=== PATIENT | male | born 1955 | race Caucasian/White ===

== ENCOUNTER 2020-08-03 22:20 | Emergency (ER) | payer OTHER ==
--- OUTSIDE RECORDS SUMMARY | 2020-08-03 22:23 | XMS REPORT | Clinical Summary ---
:1955 Author Organization [facility] Address [address] [place] [address] Care Team Providers Name Role Phone Asked, No Pcp Primary Care Provider Unavailable Allergies Active Allergy Reactions Severity Noted Date Comments Fish Containing Products Swelling High 09/03/2019 thr oat Medications Medication Sig Dispensed Refills Start Date End Date Status metFORMIN 2 (two) times 0 07/02/2019 Activ e (GLUCOPHAGE) 500 a day. mg tablet nitroglycerin as needed. 0 05/29/2019 Acti ve (NITROSTAT) 0.4 MG SL tablet aspirin (ECOTRIN) Take 81 mg by 0 Active 81 MG enteric mouth daily. coated tablet clopidogrel Take 1 tablet 90 tablet 3 09/03/2019 Act deshaun (PLAVIX) 75 mg (75 mg total) 0 tablet by mouth daily. atorvastatin Take 1 tablet 90 tablet 0 10/08/2019 Ac tive (LIPITOR) 40 MG (40 mg total) tablet by mouth daily. metoprolol Take 1 tablet 180 tablet 0 10/08/2019 Act deshaun succinate XL (50 mg total) (TOPROL-XL) 50 mg by mouth 2 24 hr tablet (two) times a day. sildenafiL Take 1 tablet 90 tablet 3 04/09/2020 Acti ve (VIAGRA) 100 MG (100 mg tablet total) by mouth daily as needed for erectile dysfunction. sildenafiL Take 1 tablet 90 tablet 0 04/07/2020 Acti ve (VIAGRA) 100 MG (100 mg tablet total) by mouth as needed for erectile dysfunction. atorvastatin 0 08/16/2019 Discon tinued (LIPITOR) 40 MG 9 (Reo rder) tablet metoprolol 2 (two) times 0 07/06/2019 Disc ontinued succinate XL a day. 9 (Reorde r) (TOPROL-XL) 50 mg 24 hr tablet metoprolol Take 1 tablet 180 tablet 0 09/30/2019 Dis continued succinate XL (50 mg total) 9 (Re order) (TOPROL-XL) 50 mg by mouth 2 24 hr tablet (two) times a day. atorvastatin Take 1 tablet 90 tablet 0 09/30/2019 Di scontinued (LIPITOR) 40 MG (40 mg total) 9 (Reorder) tablet by mouth daily. atorvastatin Take 1 tablet 90 tablet 0 10/03/2019 Di scontinued (LIPITOR) 40 MG (40 mg total) 9 (Reorder) tablet by mouth daily. sildenafiL Take 1 tablet 30 tablet 0 02/18/2020 Disc ontinued (Viagra) 50 MG (50 mg total) 0 ( Reorder) tablet by mouth as needed for erectile dysfunction. Active Problems Problem Noted Date Hypertension 09/03/2019 Coronary artery disease involving citizen potawatomi coronary lizett ry of citizen pot[place]atomi heart 09/03/2019 without angina pectoris Apnea 09/03/2019 Vision, loss, sudden, left 09/03/2019 Hx of CABG 09/03/2019 Encounters Date Type Specialty Care Team Description 04/27/2020 Refill Cardiology Bea Smith MA Med Ref ill 04/07/2020 Telephone Cardiology Alexey Bliss MA Medication Que stion (Sildenafil) 04/07/2020 Orders Only Cardiology Alexey Bliss MA 04/06/2020 Refill Cardiology Marquita Ba MD Med Refi ll 02/19/2020 Travel 02/18/2020 Telemedicine Cardiology Marquita Ba MD Coronary artery disease involving citizen potawatomi coronary artery of citizen pot[place]atomi heart without angina pectoris (Primary Dx); Hypertension, u nspecified type; Hx of CABG 02/18/2020 Telephone Cardiology Alexey Bliss MA Appointment (v irtual) 02/17/2020 Travel 02/11/2020 Travel 10/08/2019 Orders Only Cardiology Alexey Bliss MA 10/02/2019 Refill Cardiology Marquita Ba MD Med Refi ll 09/30/2019 Orders Only Cardiology Alexey Bliss MA 09/03/2019 Lab Lab Marquita Ba MD [facility] care with new doctor, encounter for; Hypertension, u nspecified type; Coronary artery disease involving citizen pot[place]atomi coronary artery of citizen pot[place]atomi heart without angina pectoris 09/03/2019 Office Visit Cardiology Marquita Ba MD Hyperten roselyn, unspecified type (Primary Dx); Establishing ca re with new doctor, encounter for; Coronary artery disease involving citizen potawatomi coronary artery of citizen potawatomi heart without angina pectoris; Apnea; Vision, loss, s udden, left; H/O four vessel coronary artery bypass graft after 08/03/2019 Surgical History Surgery Date Site/Laterality Comments CORONARY ARTERY BYPASS GRAFT KNEE SURGERY Left Medical History Medical History Date Comments Hypertension Hyperlipidemia Type 2 diabetes mellitus (HCC) Family History Medical History Relation Name Comments No Known Problems Father Heart failure Mother Relation Name Status Comments Father Mother Social History Tobacco Use Types Packs/Day Years Used Date Never Smoker Smokeless Tobacco: Never Used Alcohol Use Drinks/Week oz/Week Comments Never Alcohol Habits Answer Date Recorded How often do you have a drink containing alcohol? Never 09/03/2019 How many drinks containing alcohol do you have on a typical Not asked day when you are drinking? How often do you have six or more drinks on one occasion? No t asked Sex Assigned at Date Recorded Male 02/17/2020 1:42 PM CDT Last Filed Vital Signs Vital Sign Reading Time Taken Comments Blood Pressure 152/86 09/03/2019 8:20 AM [employer] Pulse 62 09/03/2019 8:20 AM [employer] Temperature - - Respiratory Rate - - Oxygen Saturation 100% 09/03/2019 8:20 AM [employer] Inhaled Oxygen Concentration - - Weight 116 kg (256 lb) 09/03/2019 8:20 AM [employer] Height 177.8 cm (5' 10") 09/03/2019 8:20 AM [employer] Body Mass Index 36.73 09/03/2019 8:20 AM [employer] Plan of Treatment Date Type Specialty Care Team Description 08/25/2020 Office Visit Cardiology Marquita Ba MD [address] [facility] [address] [place], [place] [address] [phone] Health Maintenance Due Date Last Done Comments DIABETES: RETINAL EYE EXAM 1955 DIABETIC FOOT EXAM 1966 URINE MICROALBUMIN 1966 COLONOSCOPY SCREENING 2006 SHINGLES VACCINES (#1) 2006 INFLUENZA VACCINE 05/16/2020 06/24/2019 Procedures Procedure Name Priority Date/Time Associated Diagnosis Comme nts US CAROTID DUPLEX Routine 09/03/2019 2:45 Establishing care R esults for this BILATERAL PM [employer] with new doctor, procedure a re in encounter for the results Hypertension, section. unspecified type Coronary artery disease involving citizen pot[place]atomi coronary artery of citizen potawatomi heart without angina pectoris COPY RECEIVED FROM: Routine 09/03/2019 9:19 Resu lts for this AM [employer] procedure are i n the results section. NON HDL CHOLESTEROL Routine 09/03/2019 9:19 Resu lts for this (REFLEX [facility]) AM [employer] procedure are in the results section. CHOL/HDLC RATIO Routine 09/03/2019 9:19 Results for this ([facility]LEX [facility]) AM [employer] procedure are in the results section. LDL-CHOLESTEROL Routine 09/03/2019 9:19 Results for this (REFLEX [facility]) AM [employer] procedure are in the results section. TRIGLYCERIDES Routine 09/03/2019 9:19 Results fo r this AM [employer] procedure are i n the results section. HDL CHOLESTEROL Routine 09/03/2019 9:19 Results for this AM [employer] procedure are i n the results section. CHOLESTEROL Routine 09/03/2019 9:19 Results for this AM [employer] procedure are i n the results section. COPY(IES) SENT TO: Routine 09/03/2019 9:19 Resul ts for this AM [employer] procedure are i n the results section. AST (SGOT) Routine 09/03/2019 9:19 Establishing care Result s for this AM [employer] with new doctor, procedure a re in encounter for the results Hypertension, section. unspecified type LIPID PANEL Routine 09/03/2019 9:19 Establishing care Result s for this AM [employer] with new doctor, procedure a re in encounter for the results Hypertension, section. unspecified type Coronary artery disease involving citizen pot[place]i coronary artery of citizen potawatomi heart without angina pectoris ECG 12-LEAD Routine 09/03/2019 8:19 Establishing care Result s for this AM [employer] with new doctor, procedure a re in encounter for the results Hypertension, section. unspecified type after 08/03/2019 Results Us carotid duplex (09/03/2019 2:45 PM [employer]) Specimen Narrative Performed At [facility] Carotid Lizett ry Ultrasound Report Pat.Name: ETHAN HUDSNO Pat.ID: [id number] St.Date: 09/03/2019 Refer.MD: MARQUITA BA MD Exam Time: 3:25:00 PM Study Type:Amarjit AVALOS Age: 10 1955,64Y Sex: MALE Sonogrphr: Lizett Easton RVT Pat. Stat.:Outp atient Room: [facility] ol: ADEEL, [facility] - 4: [address] [place] nt ID:[id number] Order ID: [id number] Reason for Study:Carotid disease screeni ng, Hx of HTN, CAD SUMMARY: CAROTID ARTERY SCAN RIGHT: There is smooth intimal lining in the common, internal and external carotid arteries with normal co lorflow. LEFT: There is smooth intimal li marcel in the common carotid artery. There is hard plaque noted in th e bulb extending into the proximal internal carotid artery. [place] rflow is undisturbed. There is antegrade flow in the vertebral artery. PRELIMINARY FINDINGS 1. Normal carotid duplex examination, right. 2. <50% stenosis in the left bulb/events intern al carotid artery. PHYSICIAN INTERPRETATION Bilateral carotid duplex examination dem onstrated atherosclerotic plaques in the left bulb. Normal carotid duplex examination, right . Less than 50% stenosis in the bulb and i nternal carotid artery, left. Both vertebral arteries are antegrade. FINDINGS: Carotid Findings: Right Left Verteb.Flw Antegrade Antegrade Subclavian Triphasic Triphasic MEASUREMENTS: DOPPLER Right CCA Dist CCA Dist PSV 65 cm/s CCA Dist EDV 9.28 cm/s Right CCA Mid CCA Mid PSV 74.3 cm/s CCA Mid EDV 10.8 cm/s Right CCA Prox CCA Prox PSV 108 cm/s CCA Prox EDV 9.94 cm/s Right Bulb Bulb PSV 55.7 cm/s Bulb EDV 7.74 cm/s Right ECA ECA PSV 107 cm/s ECA EDV 10.8 cm/s Right ICA Dist ICA Dist PSV 72.2 cm/s ICA Dist EDV 28.4 cm/s Right ICA Mid ICA Mid PSV 68.9 cm/s ICA Mid EDV 26.2 cm/s Right ICA Prox ICA Prox PSV 51.4 cm/s ICA Prox EDV 13.1 cm/s Right Vertebral Vertebral PSV 39.7 cm/s Vertebral EDV 12.5 cm/s Left CCA Dist CCA Dist PSV 68.1 cm/s CCA Dist EDV 12.4 cm/s Left CCA Prox CCA Prox PSV 141 cm/s CCA Prox EDV 12.1 cm/s Left Bulb Bulb PSV 65 cm/s Bulb EDV 12.4 cm/s Left ECA ECA PSV 107 cm/s ECA EDV 12.4 cm/s Left ICA Dist ICA Dist PSV 70.1 cm/s ICA Dist EDV 20.2 cm/s Left ICA Mid ICA Mid PSV 84.6 cm/s ICA Mid EDV 12.1 cm/s Left ICA Prox ICA Prox PSV 44.8 cm/s ICA Prox EDV 10.9 cm/s Left Vertebral Vertebral PSV 37.9 cm/s Vertebral EDV 9.76 cm/s Left CCA Mid CCA Mid PSV 85 cm/s CCA Mid EDV 12 cm/s Right ECA Prox ECA Prox PSV 107 cm/s ECA Prox EDV 11 cm/s Left ECA Prox ECA Prox PSV 107 cm/s ECA Prox EDV 12 cm/s Right SCA Prox SCA Prox PSV 102 cm/s Left SCA Prox SCA Prox PSV 149 cm/s Right ICA/CCA Ratio ICA/CCA PSV 0.692 Left ICA/CCA Ratio ICA/CCA PSV 0.527 Signed 09/04/2019 07:25 AM Marquita Ba MD Procedure Note Interface, Radiology Results In - 2018 7:26 AM [employer] [facility] Carotid Artery Ultras ound Report Pat.Name: ETHAN HUDSON Pat.I D: [id number] .Date: 09/03/2019 Refer .MD: MARQUITA BA MD Exam Time: 3:25:00 PM Study Type:Carotid Age: 10 1955,64Y Sex: MALE Sonogrphr: Lizett Easton RVT Pat. Stat.:Outpatient Room: [facility] Vol: SD, CPT - 4: 82365 Echo Event ID:[id number] Order ID: [id number] Reason for Study:Carotid disease screeni ng, Hx of HTN, CAD SUMMARY: CAROTID ARTERY SCAN RIGHT: There is smooth intimal lining i n the common, internal and external carotid arteries with normal co lorflow. LEFT: There is smooth intimal linin g in the common carotid artery. There is hard plaque noted in th e bulb extending into the proximal internal carotid artery. Color flow is undisturbed. There is antegrade flow in the vertebral artery. PRELIMINARY FINDINGS 1. Normal carotid duplex examination, r ight. 2. <50% stenosis in the left bulb/events intern al carotid artery. PHYSICIAN INTERPRETATION Bilateral carotid duplex examination dem onstrated atherosclerotic plaques in the left bulb. Normal carotid duplex examination, right . Less than 50% stenosis in the bulb and i nternal carotid artery, left. Both vertebral arteries are antegrade. FINDINGS: Carotid Findings: Right Left Verteb.Flw Antegrade Antegrade Subclavian Triphasic Triphasic MEASUREMENTS: DOPPLER Right CCA Dist CCA Dist PSV 65 cm/s CCA Dist EDV 9.28 cm/s Right CCA Mid CCA Mid PSV 74.3 cm/s CCA Mid EDV 10.8 cm/s Right CCA Prox CCA Prox PSV 108 cm/s CCA Prox EDV 9.94 cm/s Right Bulb Bulb PSV 55.7 cm/s Bulb EDV 7.74 cm/s Right ECA ECA PSV 107 cm/s ECA EDV 10.8 cm/s Right ICA Dist ICA Dist PSV 72.2 cm/s ICA Dist EDV 28.4 cm/s Right ICA Mid ICA Mid PSV 68.9 cm/s ICA Mid EDV 26.2 cm/s Right ICA Prox ICA Prox PSV 51.4 cm/s ICA Prox EDV 13.1 cm/s Right Vertebral Vertebral PSV 39.7 cm/s Vert ebral EDV 12.5 cm/s Left CCA Dist CCA Dist PSV 68.1 cm/s CCA Dist EDV 12.4 cm/s Left CCA Prox CCA Prox PSV 141 cm/s CCA Prox EDV 12.1 cm/s Left Bulb Bulb PSV 65 cm/s Bulb EDV 12.4 cm/s Left ECA ECA PSV 107 cm/s ECA EDV 12.4 cm/s Left ICA Dist ICA Dist PSV 70.1 cm/s ICA Dist EDV 20.2 cm/s Left ICA Mid ICA Mid PSV 84.6 cm/s ICA Mid EDV 12.1 cm/s Left ICA Prox ICA Prox PSV 44.8 cm/s ICA Prox EDV 10.9 cm/s Left Vertebral Vertebral PSV 37.9 cm/s Vert ebral EDV 9.76 cm/s Left CCA Mid CCA Mid PSV 85 cm/s CCA Mid EDV 12 cm/s Right ECA Prox ECA Prox PSV 107 cm/s ECA Prox EDV 11 cm/s Left ECA Prox ECA Prox PSV 107 cm/s ECA Prox EDV 12 cm/s Right SCA Prox SCA Prox PSV 102 cm/s Left SCA Prox SCA Prox PSV 149 cm/s Right ICA/CCA Ratio ICA/CCA PSV 0.692 Left ICA/CCA Ratio ICA/CCA PSV 0.527 Signed 09/04/2019 07:25 AM Marquita Ba MD Performing Organization Address City/[facility]/ZIP Code Phon e Number [facility] [address] [place] [address] NON HDL CHOLESTEROL (REFLEX [facility]) (09/03/2019 9:19 AM [employer]) Non-HDL cholesterol 77 <130 mg/dL [facility] Comment: (calc) [place] For patients with diabetes plus 1 major ASCVD risk factor, treating to a non-HDL-C goal of <100 mg/dL (LDL-C of <70 mg/dL) is considered a therapeutic option. Specimen Resulting Agency Comment Performing Organization Information: Site ID: [id number] Name: [facility] Address: [address] [place], [place] [address] Director: Rafa Hong Performing Organization Address [facility] Phon e Number [facility] [place] [id number] CHOL/HDLC RATIO (REFLEX [facility]) (09/03/2019 9:19 AM [employer]) Pathologist Sig nature Cholesterol/HDL ratio 2.9 <5.0 (calc) [facility] [place] Specimen Resulting Agency Comment Performing Organization Information: Site ID: [id number] Name: [facility] Address: [address] [place] [phone] Director: Rafa Hong Performing Organization Address [facility] Phon e Number [facility] [place] [address] COPY RECEIVED FROM: (09/03/2019 9:19 AM [employer]) Pathologist Sig nature Copy received from: [facility] Comment: [address] [facility] [address] [place] [address] Specimen Performing Organization Address [facility] Phon e Number [facility] LDL-CHOLESTEROL (REFLEX [facility]) (09/03/2019 9:19 AM [employer]) LDL cholesterol 54 mg/dL (calc) [facility] calculated Comment: [place] Reference range: <100 Desirable range <100 mg/dL for primary prevention; <70 mg/dL for patients with CHD or diabetic patients with > or = 2 CHD risk factors. LDL-C is now calculated using the Evan calculation, which is a validated novel method providi ng better accuracy than the Friedewald equation in the estimation of LDL-C. Cristian ARGUETA et al. JENNIFER. 2013;310(19): 1462-3613 (http://education.[employer]/faq/OJH736) Specimen Resulting Agency Comment Performing Organization Information: Site ID: [facility] Name: [facility] Address: [address] [place] [phone] Director: Rafa Hong Performing Organization Address [facility] Phon e Number [facility] [address] COPY(IES) SENT TO: (09/03/2019 9:19 AM [employer]) Pathologist Sig nature Copies/mL [facility] Comment: [facility] [address] [facility] [place] [address] Specimen Performing Organization Address [facility] Phon e Number [facility] Triglycerides (09/03/2019 9:19 AM [employer]) Pathologist Sig nature Triglycerides 148 <150 mg/dL [facility] [place] Specimen Resulting Agency Comment Performing Organization Information: Site ID: [facility] Name: [facility] Address: [address] [place] [phone] Director: Rafa Hong Performing Organization Address [facility] Phon e Number [facility] [address] AST (SGOT) (09/03/2019 9:19 AM [employer]) Pathologist Sig nature AST 16 10 - 35 U/L [facility] [place] Specimen Blood Resulting Agency Comment Performing Organization Information: Site ID: [facility] Name: [facility] Address: [address] [place] [phone] Director: Rafa Hong Performing Organization Address [facility] Phon e Number [facility] [address] HDL cholesterol (09/03/2019 9:19 AM [employer]) Pathologist Sig nature HDL cholesterol 40 (L) >40 mg/dL [facility] [place] Specimen Resulting Agency Comment Performing Organization Information: Site ID: [id number] Name: [facility] Address: [address] [place], [place] [phone] Director: Rafa Hong Performing Organization Address [facility] Phon e Number [facility] [address] Cholesterol (09/03/2019 9:19 AM [employer]) Pathologist Sig nature Cholesterol, total 117 <200 mg/dL [facility] Specimen Resulting Agency Comment Performing Organization Information: Site ID: [id number] Name: [facility] Address: [address] [place] [phone] Director: Rafa Hong Performing Organization Address [facility] Phon e Number [facility] [address] Lipid panel (09/03/2019 9:19 AM [employer]) Cholesterol, total 117 <200 mg/dL [facility] [place] HDL cholesterol 40 (L) >40 mg/dL [facility] [place] Triglycerides 148 <150 mg/dL [facility] [place] LDL cholesterol 54 mg/dL (calc) [facility] calculated Comment: [place] Reference range: <100 Desirable range <100 mg/dL for primary prevention; <70 mg/dL for patients with CHD or diabetic patients with > or = 2 CHD risk factors. LDL-C is now calculated using the Cristian-Diana calculation, which is a validated novel method providi ng better accuracy than the Friedewald equation in the estimation of LDL-C. Cristian SS et al. JENNIFER. 2013;310(19): 1681-0115 (http://education.[employer]/faq/DQD050) Cholesterol/HDL 2.9 <5.0 (calc) [facility] Non-HDL cholesterol 77 <130 mg/dL [facility] Comment: (calc) [place] For patients with diabetes plus 1 major ASCVD risk factor, treating to a non-HDL-C goal of <100 mg/dL (LDL-C of <70 mg/dL) is considered a therapeutic option. Specimen Blood Resulting Agency Comment Performing Organization Information: Site ID: [id number] Name: [facility] Address: [address] [place] [address] Director: Rafa Hogn Performing Organization Address City/State/ZIP Code Phon e Number [facility] [place] [address] [place], [place] [id number] ECG 12 lead (09/03/2019 8:19 AM [employer]) Pathologist Sig nature Ventricular rate 63 [facility] Atrial rate 63 [facility] NM interval 176 [facility] QRSD interval 114 [facility] QT interval 420 [facility] QTC interval 429 [facility] P axis 1 28 [facility] QRS axis 1 -7 [facility] T wave axis 77 [facility] EKG impression Normal sinus [facility] rhythm-Inferior infarct , age undetermined-Poor R Wave Progression-Abnormal ECG-No previous ECGs available-Electronicall y Signed By Victor Manuel AVILEZ, Payam ([id number]) on 09/04/2019 2:40:02 AM Specimen Narrative Performed At This result has an attachment that is no t available. 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
--- OUTSIDE RECORDS SUMMARY | 2020-08-03 22:23 | XMS REPORT | Continuity of Care Document ---
:1955 Author Organization [facility] t Address [address] [place] [address] [address]. [address] [place] [address] Care Team Providers Name Role Phone Asked, Pcp Primary Care Physician Unavailable Sarah BUTLER Attending Clinician Unavailable Ruthy BUTLER Attending Clinician Unavailable John Bolaños MD Attending Clinician Payers Payer Name Policy Type Policy Effective Date Expiration Date [facility] Number AETNAAETNA PPO [id number] 2019 [place] OPEN 00:00:00 Yarsani [id number] -Prese ntPPO Problems Condition Condition Condition Status Onset Resolution Last Treating Co mments Source Name Details Category Date Date Treatment Clinician Date Hypertensi Hypertensi Disease Active 2018-10 [place] on 11-03 [facility] 00:00: st 00 Coronary Coronary Disease Active 2018-10 [place] artery artery 11-03 [facility] disease disease 00:00: st involving involving 00 [place] coronary coronary artery of artery of [place] heart heart without without angina angina pectoris pectoris Apnea Apnea Disease Active 2018-10 [place] 11-03 Methodi 00:00: st 00 Vision, Vision, Disease Active 2018-10 [place] loss, loss, 11-03 [facility] sudden, sudden, 00:00: st left left 00 Hx of CABG Hx of CABG Disease Active 2018-10 [place] 11-03 [facility] 00:00: st 00 Allergies, Adverse Reactions, Alerts Allergy Allergy Status Severity Reaction(s) Onset Inactive Treating Comm ents Source Name Type Date Date Clinician Fish Propensi Active Swelling 2018-10 throat [place] Containi ty to 11-03 Method[facility] ng adverse 00:00: st Products reaction 00 s to drug Family History Family Member Diagnosis Comments Start Date Stop Date Source Natural father No Known Problems [place] Yarsani Natural mother Heart failure Oliver Montero Social History Social Habit Start Date Stop Date Quantity Comments Source History [facility] Meth odist Alcohol Std Drinks History [facility] od[facility] Alcohol Binge Sex Assigned At [facility] ethodist Tobacco use and 2019-09-03 2019-09-03 Never used [facility] ethodist exposure 00:00:00 00:00:00 Alcohol intake 2019-09-03 2019-09-03 Lifetime [facility] thodist 00:00:00 00:00:00 non-drinker (finding) History [facility] 2019-09-03 2019-09-03 1 [place] Meth odist Alcohol Frequency 00:00:00 00:00:00 Smoking Status Start Date Stop Date Source Never smoker [place] Methodis t Medications Ordered Filled Start Stop Current Ordering Indication Dosage Frequency Signature Comments Components Source Medication Medication Date Date Medication? Clinician (SIG) Name Name sildenafiL 0 Yes 100mg Q24H Take 1 [place] (VIAGRA) 6-25 tablet Method[facility] 100 MG 00:00: ([address] tablet 00 total) by mouth daily as needed for erectile dysfunctio n. sildenafiL 2020-0 Yes 100mg Take 1 [place] (VIAGRA) 6-23 tablet Methodi 100 MG 00:00: ([address] tablet 00 total) by mouth as needed for erectile dysfunctio n. sildenafiL 0 2020- No 50mg Take 1 [place] (Viagra) 50 5-05 06-23 tablet (50 M ethodi MG tablet 00:00: 00:00 mg total) st 00 :00 by mouth as needed for erectile dysfunctio n. atorvastati 2018-10 Yes 40mg QD Take 1 [place] (LIPITOR) 2-24 tablet (40 Me thodi 40 MG 00:00: mg total) st tablet 00 by mouth daily. metoprolol 2018-10 Yes 50mg Q.5D Take 1 [place] succinate 2-24 tablet (50 Meth karen XL 00:00: mg total) st (TOPROL-XL) 00 by mouth 2 50 mg 24 hr (two) tablet times a day. atorvastati 2018-10 2019- No 40mg QD Take 1 [place] (LIPITOR) 2-19 12-24 tablet (40 M ethodi 40 MG 00:00: 00:00 mg total) st tablet 00 :00 by mouth daily. metoprolol 2018-10- No 50mg Q.5D Take 1 [place] succinate 12-01-24 tablet (50 Met hodi XL 00:00: 00:00 mg total) st (TOPROL-XL) 00 :00 by mouth 2 50 mg 24 hr (two) tablet times a day. atorvastati 2018-10- No 40mg QD Take 1 [place] (LIPITOR) 16 -18 tablet (40 M ethodi 40 MG 00:00: 00:00 mg total) st tablet 00 :00 by mouth daily. aspirin 2018-10 Yes 81mg QD Take 81 mg [place] (ECOTRIN) 11-03 by mouth Method i 81 MG 08:26: daily. st enteric 47 coated tablet clopidogrel 2018-10- No 75mg QD Take 1 [place] (PLAVIX) 75 11-03 tablet (75 M ethodi mg tablet 00:00: 23:59 mg total) st 00 :00 by mouth daily. atorvastati 2018-10- No [place] (LIPITOR) 10-1616 Methodi 40 MG 00:00: 00:00 st tablet 00 :00 metoprolol 2018- No Q.5D 2 (two) [place] succinate 07-06- times a Method i XL 00:00: 00:[address] (TOPROL-XL) 00 :00 50 mg 24 hr tablet metFORMIN Yes Q.5D 2 (two) [place] (GLUCOPHAGE 9-17 times a Metho di ) 500 mg 00:00: day. st tablet 00 nitroglycer Yes as needed. [place] in 8-14 Methodi (NITROSTAT) 00:00: st 0.4 MG SL 00 tablet Vital Signs Vital Name Observation Time Observation Value Comments Source Systolic blood 2019-09-03 08:20:00 152 mm[Hg] [place] pressure Diastolic blood 2019-09-03 08:20:00 86 mm[Hg] [place] Yarsani pressure Heart rate 2019-09-03 08:20:00 62 /min Oliver Montero Body height 2019-09-03 08:20:00 177.8 cm Oliver Montero Body weight 2019-09-03 08:20:00 116.121 kg Oliver Montero BMI 2019-09-03 08:20:00 36.73 kg/m2 Oliver Montero Oxygen saturation in 2019-09-03 08:20:00 100 /min Oliver Montero Arterial blood by Pulse oximetry Procedures Procedure Date / Time Performed Performing Clinician [facility] e CAROTID DUPLEX 2019-09-03 14:45:25 Marquita Bolaños Me thodist BILATERAL LIPID PANEL 2019-09-03 09:19:00 Marquita Bolaños odist AST (SGOT) 2019-09-03 09:19:00 Marquita Bolaños odist COPY(IES) SENT TO: 2019-09-03 09:19:00 Marquita Bolaños M ethodist HDL CHOLESTEROL 2019-09-03 09:19:00 Marquita Bolaños odist TRIGLYCERIDES 2019-09-03 09:19:00 Marquita Bolaños odskyla LDL-CHOLESTEROL (REFLEX 2019-09-03 09:19:00 Marquita Bolaños Yarsani QUEST) NON HDL CHOLESTEROL 2019-09-03 09:19:00 Marquita Bolaños (REFLEX QUEST) COPY RECEIVED FROM: 2019-09-03 09:19:00 Marquita Bolaños ECG 12-LEAD 2019-09-03 08:19:57 Marquita Boalños odist Plan of Care Planned Activity Planned Date Details Comments Source Future Scheduled 2020-05-16 INFLUENZA VACCINE [place] [facility] Test 00:00:00 [code = INFLUENZA VACCINE] Future Scheduled 2006 COLONOSCOPY SCREENING [place] Y[facility] Test 00:00:00 [code = COLONOSCOPY SCREENING] Future Scheduled 2006 SHINGLES VACCINES (#1) [place] Y[facility]ani Test 00:00:00 [code = SHINGLES VACCINES (#1)] Future Scheduled 1966 DIABETIC FOOT EXAM [place] Yarsani Test 00:00:00 [code = DIABETIC FOOT EXAM] Future Scheduled 1966 URINE MICROALBUMIN [place] Yarsani Test 00:00:00 [code = URINE MICROALBUMIN] Future Scheduled 1956 DIABETES: RETINAL EYE [place] Yarsani Test 00:00:00 EXAM [code = DIABETES: RETINAL EYE EXAM] Encounters Start End Encounter Admission Attending Care Care Encounter Source Date/Time Date/Time Type Type Clinicians Facility Department ID 2020-02-18 2020-02-18 Outpatient [facility] [id number] 084 [place] 00:00:00 00:00:00 MARQUITA [address] Results Test Description Test Time Test Comments Results Result Comments Source Lipid panel 2019-09-04 07:17:00 Test Item Value Reference Range Interpretation Comme nts Cholesterol, total (test 117 mg/dL <200 code = 2093-3) HDL cholesterol (test 40 mg/dL >40 L code = 2085-9) Triglycerides (test code 148 mg/dL <150 = 2571-8) LDL cholesterol 54 mg/dL (calc) Reference ra nge: <100 calculated (test code = Adali rable range <100 36368-0) mg/dL for prima ry prevention; <7 0 mg/dL for patie nts with CHD or orion betic patients with > or = 2 CHD risk fact ors. LDL-C is now calculated renuka dooley the Evan calculation, wh ich is a validated nov el method christopher dooley better accuracy than the Friedewald equation in the estimation of L DL-C. Cristian SS et al . JENNIFER. 2013;310( 19): 9941-0565 (http://educati on.Que stDiagnostics.c om/faq /UFH921) Cholesterol/HDL ratio 2.9 <5.0 (calc) (test code = 9830-1) Non-HDL cholesterol (test 77 <130 mg/dL Fo r patients with code = 61394-3) (calc) diabetes plu s 1 major ASCVD risk fact or, treating to a non-HDL-C goal of <100 mg/dL (LDL -C of <70 mg/dL) is considered a therapeutic opt ion. RAC (test code = RAC) Performing Organization Information: Site ID: TATI Name: [facility] Address: [address] [place] [phone] Director: Rafa Hong Lab Interpretation (test Abnormal code = 82834-9) Oliver MethodistAST (SGOT)2019-09-04 07:17:00 Test Item Value Reference Range Interpretation Comments AST (test code = 16 U/L 10-35 1919-8) RAC (test code = Performing Organization RAC) Information: Site ID: RGA Name: [facility] Address: [address] [place] [phone] Director: Rafa Boyd MethodistCOPY RECEIVED FROM:2019-09-04 07:17:00Copy received from:Comment: [address] [facility] [address] [place] [address] [facility] [id number] 07:15:00 Test Item Value Reference Range Interpretation Comments Cholesterol, total 117 mg/dL <200 (test code = 2093-3) RAC (test code = Performing Organization RAC) Information: Site ID: RGA Name: [facility] Address: [address] [place] [address] Director: Rafa Hong [place] MethodistHDL [id number] 07:15:00 Test Item Value Reference Range Interpretation Comments HDL cholesterol (test 40 mg/dL >40 L code = 2085-9) RAC (test code = RAC) Performing Organization Information: Site ID: RGA Name: [facility] Address: [address] [place] [phone] Director: Rafa Hong Lab Interpretation (test Abnormal code = 13558-1) [place] [id number] 07:15:00 Test Item Value Reference Range Interpretation Comments Triglycerides (test 148 mg/dL <150 code = 2571-8) RAC (test code = RAC) Performing Organization Information: Site ID: RGA Name: [facility] Address: [address] [place] [phone] Director: Rafa Hong [place] MethodistLDL-CHOLESTEROL (REFLEX QUEST)2019-09-04 07:15:00 Test Item Value Reference Range Interpretation Comments LDL cholesterol 54 mg/dL (calc) Reference ra nge: calculated (test <100 Desira ble code = 19868-8) range <100 m g/dL for primary prevention; <7 0 mg/dL for patients with C HD or diabetic patients with > or = 2 CHD risk factors. LDL-C is now calculated using the Cristian-Ortiz calculation, which is a validated novel method providin g better accuracy than the Friedewald equation in the estimation of LDL-C. Cristian S S et al. JENNIFER. 2013;310(19): 2377-7570 (http://educati on .CreditCardsOnlinei [place] .com/faq/PAZ734 ) RAC (test code = Performing RAC) Organization Information: Site ID: [facility] Name: [facility] Address: [address] [place] [phone] Director: Rafa Hong Boyd MethodistCHOL/HDLC RATIO (REFLEX QUEST)2019-09-04 07:15:00 Test Item Value Reference Range Interpretation Comments Cholesterol/HDL 2.9 <5.0 (calc) ratio (test code = 9830-1) RAC (test code = Performing Organization RAC) Information: Site ID: [facility] Name: [facility] Address: [address] [place] [phone] Director: Rafa Hong [place] YarsaniNON HDL CHOLESTEROL (REFLEX QUEST)2019-09-04 07:15:00 Test Item Value Reference Range Interpretation Comments Non-HDL 77 <130 mg/dL For patients wi th cholesterol (test (calc) diabetes p martell 1 code = 29534-1) major ASCVD risk factor, treatin g to a non-HDL-C goal of <100 mg/dL (LDL-C of <70 mg/dL) is considered a therapeutic option. RAC (test code = Performing RAC) Organization Information: Site ID: [facility] Name: [facility] Lab Address: [address] [place] [phone] Director: Rafa Hong [place] MethodistCOPY(IES) SENT TO:2019-09-04 07:15:00Copies/mLComment: OSCAR CARDIO [address] [facility] [address] [place] [address] [facility] MethodistECG 12 [id number] 02:40:04 Test Item Value Reference Range Interpretation Comments Ventricular rate (test 63 code = 253) Atrial rate (test code = 63 255) MD interval (test code = 176 266) QRSD interval (test code 114 = 260) QT interval (test code = 420 264) QTC interval (test code 429 = 265) P axis 1 (test code = 28 267) QRS axis 1 (test code = -7 268) T wave axis (test code = 77 270) EKG impression (test Normal sinus code = 273) rhythm-Inferior infarct , age undetermined-Poor R Wave Progression-Abnormal ECG-No previous ECGs available-Electronica lly Signed By Payam Rush MD ([id number]) on 09/04/2019 2:40:02 AM Oliver Montero
[2020-08-03] MEDS ORDERED: KETOROLAC 30 MG/ML INJ ONE (22:53)
[2020-08-03] MEDS ORDERED: NA CHLORIDE 0.9% 1,000 ML ONE (22:54)
[2020-08-03] MEDS ORDERED: ONDANSETRON 4 MG/2 ML VIAL ONE (22:54)
[2020-08-03 23:28] LABS: Absolute Lymphocytes (CBC) 2.3 K/uL (0.7-4.9); Basophils % 0.5 % (0-1.3); Hematocrit 44.3 % (39.6-49.0); Lymphocytes % 23.1 % (15.3-44.8); MPV 9.3 fL (7.6-11.3); RBC Red Blood Cell Count 5.27 M/uL (4.33-5.43)
[2020-08-03 23:38] LABS: Albumin 3.8 g/dL (3.4-5.0); Bilirubin Direct 0.1 mg/dL (0-0.2); Bilirubin Total 0.3 mg/dL (0.2-1.0); Protein, Total 7.5 g/dL (6.4-8.2)
[2020-08-03] MEDS ORDERED: MORPHINE 4 MG/ML SYR ONE (23:42)
[2020-08-04] MEDS ORDERED: MAGNESIUM SULFATE 1 gm IVPB 1 GM/100 ML BAG IV ONE (00:06)
[2020-08-04] MEDS ORDERED: TAMSULOSIN 0.4 MG SR CAP ONE (00:06)
[2020-08-04] MEDS ORDERED: CEFTRIAXONE/SWI 1gm 1 GM/10 ML SYR ONE (00:06)
--- NOTE | 2020-08-04 00:44 | ER ---
Nurse's Notes [facility] Name: Ethan Paredes Age: 64 yrs Sex: Male : 1955 Arrival Date: 08/03/2020 Time: 22:23 Bed 7 Private MD: Diagnosis: Calculus of ureter-left Presentation: 08/03 22:33 Chief complaint: Patient states: left lower abdominal pain that started 25 minutes ago. wh Associated symptoms nausea but denies vomiting. Pt states Hx of Kidney Stones. Coronavirus screen: Client denies travel out of the [place] in the last 14 days. At this time, the client does not indicate any symptoms associated with coronavirus-19. Ebola Screen: Patient negative for fever greater than or equal to 101.5 degrees Fahrenheit, and additional compatible Ebola Virus Disease symptoms Patient denies exposure to infectious person. Initial Sepsis Screen: Does the patient meet any 2 criteria? No. Patient's initial sepsis screen is negative. Does the patient have a suspected source of infection? Yes: Acute abdominal pain. Risk Assessment: Do you want to hurt yourself or someone else? Patient reports no desire to harm self or others. Onset of symptoms was August 03, 2020. 22:33 Method Of Arrival: Ambulatory 22:33 Acuity: ESTEFANIA 3 Historical: - Allergies: 22:37 iodine; 22:37 Fish Containing Products; - PMHx: 22:37 Diabetes - NIDDM; Hypertension; Bypass; High Cholesterol; Kidney Stones; - PSHx: 22:37 Knee surgery; Stent Placement; - Immunization history:: Adult Immunizations not up to date. - Social history:: Smoking status: Patient/guardian denies using. Screenin:35 Abuse screen: Denies threats or abuse. Denies injuries from another. Nutritional screening: No deficits noted. Tuberculosis screening: No symptoms or risk factors identified. Fall Risk None identified. Assessment: 22:51 General: Appears uncomfortable, Behavior is cooperative. Pain: Complains of pain in left lower quadrant Pain does not radiate. Pain currently is 9 out of 10 on a pain scale. Pain began 30 min ago. Neuro: Level of Consciousness is awake, alert, obeys commands, Oriented to person, place, time, situation, Appropriate for age. Cardiovascular: Capillary refill < 3 seconds. Respiratory: Airway is patent Respiratory effort is even, unlabored, Respiratory pattern is regular, symmetrical. GI: Abdomen is round non-distended, Abd is soft Abdomen is tender to palpation in left lower quadrant Reports lower abdominal pain, nausea. : No signs and/or symptoms were reported regarding the genitourinary system. EENT: No signs and/or symptoms were reported regarding the EENT system. Derm: Skin is intact, is healthy with good turgor, Skin is pink, warm \T\ dry. normal. Musculoskeletal: Circulation, motion, and sensation intact. 23:46 Reassessment: Patient appears in no apparent distress at this time. No changes from previously documented assessment. Patient and/or family updated on plan of care and expected duration. Pain level reassessed. Patient is alert, oriented x 3, equal unlabored respirations, skin warm/dry/pink. 08/04 01:00 Reassessment: Patient appears in no apparent distress at this time. Patient and/or family updated on plan of care and expected duration. Pain level reassessed. Patient is alert, oriented x 3, equal unlabored respirations, skin warm/dry/pink. Pt with DC order just awaiting to submit Urine sample for Ua. 01:45 Reassessment: Patient appears in no apparent distress at this time. Patient and/or family updated on plan of care and expected duration. Pain level reassessed. Patient is alert, oriented x 3, equal unlabored respirations, skin warm/dry/pink. Vital Signs: 08/03 22:33 BP 183 / 101; Pulse 66; Resp 18; Pulse Ox 99% ; Weight 120.66 kg; Height 5 ft. 10 in. (177.80 cm); Pain 9/10; 23:46 BP 153 / 83; Pulse 66; Resp 18; Pulse Ox 94% on R/A; 08/04 00:59 BP 160 / 86; Pulse 66; Resp 18; Pulse Ox 95% on R/A; 01:55 BP 148 / 89; Pulse 31; Resp 18; Pulse Ox 95% ; 08/03 22:33 Body Mass Index 38.17 (120.66 kg, 177.80 cm) ED Course: 08/03 22:23 Patient arrived in ED. cl3 22:29 Antonio Lazo MD is Attending Physician. pkl 22:32 [facility] En[facility]owalski [facility] cp 22:35 Triage completed. 22:37 Arm band placed on right wrist. wh 22:37 Patient has correct armband on for positive identification. Placed in gown. Bed in low wh position. Call light in reach. Side rails up X 1. Pulse ox on. NIBP on. 22:40 Inserted saline lock: 18 gauge in left antecubital area, using aseptic technique. Blood ds4 collected. 22:51 Trevor Ham is Primary Nurse. 23:13 CT Stone Protocol In Process Unspecified. EDMS 08/04 00:43 Timo Santo MD is Referral Physician. cp 01:57 No provider procedures requiring assistance completed. IV discontinued, intact, bleeding controlled, No redness/swelling at site. Administered Medications: 08/03 22:46 Drug: NS 0.9% 500 ml Route: IV; Rate: bolus; Site: left antecubital; 23:33 Follow up: Response: No adverse reaction; IV Status: Completed infusion 22:48 Drug: TORadol - Ketorolac 15 mg Route: IVP; Site: left antecubital; 23:32 Follow up: Response: No adverse reaction; Pain is decreased 22:50 Drug: Zofran (Ondansetron) 4 mg Route: IVP; Site: left antecubital; 23:32 Follow up: Response: No adverse reaction; Nausea is decreased 23:00 Drug: NS 0.9% 500 ml Route: IV; Rate: 125 ml/hr; Site: left antecubital; 23:32 Drug: morphine 4 mg {Note: RASS 0.} Route: IVP; Site: left antecubital; 08/04 00:06 Follow up: Response: No adverse reaction; Pain is decreased; RASS: Alert and Calm (0) 00:01 Drug: Flomax 0.4 mg Route: PO; 00:43 Follow up: Response: No adverse reaction 00:03 Drug: Rocephin - (cefTRIAXone) 1 grams Route: IVPB; Infused Over: 30 mins; Site: left antecubital; 00:43 Follow up: Response: No adverse reaction; IV Status: Completed infusion 00:05 Drug: Magnesium Sulfate 1 grams Route: IVPB; Infused Over: 1 hrs; Site: left antecubital; 00:43 Follow up: Response: No adverse reaction; IV Status: Completed infusion Outcome: 00:43 Discharge ordered by . george 01:57 Patient left the ED. mw2 01:57 Discharged to home ambulatory, with family. 01:57 Condition: stable 01:57 Discharge instructions given to patient, family, Instructed on discharge instructions, follow up and referral plans. no drinking with medication, no driving heavy equipment, medication usage, urine strainer, POC Demonstrated understanding of instructions, follow-up care, medications, POC Prescriptions given X 4. Signatures: Dispatcher [employer] EDBryson Webb RN RN Antonio Silva MD MD pkl Swanson, Donovan ds4 Jose Enrique Kowalski PA PA cp Habalo, Trevor Bernardo Shoshana mw2 Noe Rivera cl3 Corrections: (The following items were deleted from the chart) 01:55 00:05 Reassessment: Patient appears in no apparent distress at this time. Patient wh and/or family updated on plan of care and expected duration. Pain level reassessed. Patient is alert, oriented x 3, equal unlabored respirations, skin warm/dry/pink. Pt with DC order just awaiting to submit Urine sample for Ua 01:55 01:30 Reassessment: Patient appears in no apparent distress at this time. Patient wh and/or family updated on plan of care and expected duration. Pain level reassessed. Patient is alert, oriented x 3, equal unlabored respirations, skin warm/dry/pink.
--- NOTE | 2020-08-04 00:44 | EDPHYS ---
Physician Documentation [facility] Name: Ethan Paredes Age: 64 yrs Sex: Male : 1955 Arrival Date: 08/03/2020 Time: 22:23 Bed 7 Private MD: ED Physician Antonio Lazo HPI: 08/03 22:39 This 64 yrs old Male presents to ER via Ambulatory with complaints of Left cp Side Pain. 22:39 The patient complains of pain in the left flank. cp 22:39 Location: left lower abdomen. Onset: The symptoms/episode began/occurred suddenly, 30 cp minute(s) ago. Associated signs and symptoms: Pertinent positives: nausea, Pertinent negatives: fever, pain radiating to the lower extremities, vomiting. 22:39 The patient has experienced similar episodes in the past, several times, today's cp symptoms are similar, to when the patient was apparently diagnosed with kidney stone. Historical: - Allergies: 22:37 iodine; wh 22:37 Fish Containing Products; - PMHx: 22:37 Diabetes - NIDDM; Hypertension; Bypass; High Cholesterol; Kidney Stones; wh - PSHx: 22:37 Knee surgery; Stent Placement; wh - Immunization history:: Adult Immunizations not up to date. - Social history:: Smoking status: Patient/guardian denies using. ROS: 22:45 Constitutional: Negative for body aches, chills, fever, poor PO intake. cp 22:45 Eyes: Negative for injury, pain, redness, and discharge. cp 22:45 ENT: Negative for ear pain, sore throat, difficulty swallowing, difficulty handling secretions. 22:45 Cardiovascular: Negative for chest pain, palpitations. 22:45 Respiratory: Negative for cough, shortness of breath, wheezing. 22:45 Abdomen/GI: Positive for nausea, Negative for vomiting, diarrhea, constipation. 22:45 Back: Positive for flank pain, on the left. 22:45 : Negative for urinary symptoms, testicular pain 22:45 Neuro: Negative for altered mental status, headache, weakness. 22:45 All other systems are negative. Exam: 22:50 Constitutional: The patient appears in no acute distress, alert, awake, cp non-diaphoretic, non-toxic, well developed, well nourished, obese, uncomfortable. 22:50 Head/Face: Normocephalic, atraumatic. cp 22:50 Eyes: Periorbital structures: appear normal, Conjunctiva: normal, no exudate, no cp injection, Sclera: no appreciated abnormality, Lids and lashes: appear normal, bilaterally. 22:50 ENT: External ear(s): are unremarkable, Nose: is normal, Mouth: Lips: moist, Oral cp mucosa: moist, Posterior pharynx: Airway: no evidence of obstruction, patent. 22:50 Chest/axilla: Inspection: normal, Palpation: is normal, no crepitus, no tenderness. 22:50 Cardiovascular: Rate: normal, Rhythm: regular. 22:50 Respiratory: the patient does not display signs of respiratory distress, Respirations: normal, no use of accessory muscles, no retractions, labored breathing, is not present, Breath sounds: are clear throughout, no decreased breath sounds. 22:50 Abdomen/GI: Inspection: abdomen appears normal, Bowel sounds: active, all quadrants, Palpation: soft, in all quadrants, severe abdominal tenderness, in the anterior aspect of left lateral abdomen and posterior aspect of left lateral abdomen, rebound tenderness, is not appreciated, voluntary guarding, is elicited in the anterior aspect of left lateral abdomen and posterior aspect of left lateral abdomen. 22:50 Skin: no rash present. 22:50 Neuro: Orientation: to person, place \T\ time. Mentation: is normal. Vital Signs: 22:33 BP 183 / 101; Pulse 66; Resp 18; Pulse Ox 99% ; Weight 120.66 kg; Height 5 ft. 10 in. wh (177.80 cm); Pain 9/10; 23:46 BP 153 / 83; Pulse 66; Resp 18; Pulse Ox 94% on R/A; wh 08/04 00:59 BP 160 / 86; Pulse 66; Resp 18; Pulse Ox 95% on R/A; 01:55 BP 148 / 89; Pulse 31; Resp 18; Pulse Ox 95% ; 08/03 22:33 Body Mass Index 38.17 (120.66 kg, 177.80 cm) MDM: 08/03 22:29 Patient medically screened. pkl 23:00 Differential diagnosis: nephrolithiasis, pyelonephritis, UTI, testicular torsion, cp pancreatitis, ruptured AAA, dissecting AAA. 08/04 00:42 Data reviewed: vital signs, nurses notes, lab test result(s), radiologic studies, CT cp scan. Counseling: I had a detailed discussion with the patient and/or guardian regarding: the historical points, exam findings, and any diagnostic results supporting the discharge/admit diagnosis, the presence of at least one elevated blood pressure reading (>120/80) during this emergency department visit, lab results, radiology results, the need for outpatient follow up, a urologist, to return to the emergency department if symptoms worsen or persist or if there are any questions or concerns that arise at home. Response to treatment: the patient's symptoms have markedly improved after treatment, and as a result, I will discharge patient. 08/03 22:39 Order name: Basic Metabolic Panel; Complete Time: 23:42 08/03 23:42 Interpretation: Normal except: GLUC 126; BUN 19; GFR 61. 08/03 22:39 Order name: CBC with Diff; Complete Time: 23:42 08/03 23:43 Interpretation: Reviewed. 08/03 22:39 Order name: Hepatic Function; Complete Time: 23:42 08/03 22:39 Order name: Lipase; Complete Time: 23:42 08/03 22:39 Order name: Urine Microscopic Only 08/04 01:42 Order name: Urine Dipstick--Ancillary (enter results) [facility] 08/03 22:39 Order name: CT Stone Protocol 08/04 01:56 Order name: Urine Culture 08/03 22:39 Order name: IV Saline Lock; Complete Time: 22:45 08/03 22:39 Order name: Labs collected and sent; Complete Time: 22:45 08/03 22:39 Order name: Urine Dipstick-Ancillary (obtain specimen); Complete Time: 01:44 08/03 23:44 Order name: PO challenge; Complete Time: 00:00 08/04 00:42 Order name: Urine Strainer; Complete Time: 01:42 cp Administered Medications: 08/03 22:46 Drug: NS 0.9% 500 ml Route: IV; Rate: bolus; Site: left antecubital; 23:33 Follow up: Response: No adverse reaction; IV Status: Completed infusion 22:48 Drug: TORadol - Ketorolac 15 mg Route: IVP; Site: left antecubital; 23:32 Follow up: Response: No adverse reaction; Pain is decreased 22:50 Drug: Zofran (Ondansetron) 4 mg Route: IVP; Site: left antecubital; 23:32 Follow up: Response: No adverse reaction; Nausea is decreased 23:00 Drug: NS 0.9% 500 ml Route: IV; Rate: 125 ml/hr; Site: left antecubital; 23:32 Drug: morphine 4 mg {Note: RASS 0.} Route: IVP; Site: left antecubital; 08/04 00:06 Follow up: Response: No adverse reaction; Pain is decreased; RASS: Alert and Calm (0) 00:01 Drug: Flomax 0.4 mg Route: PO; 00:43 Follow up: Response: No adverse reaction 00:03 Drug: Rocephin - (cefTRIAXone) 1 grams Route: IVPB; Infused Over: 30 mins; Site: left antecubital; 00:43 Follow up: Response: No adverse reaction; IV Status: Completed infusion 00:05 Drug: Magnesium Sulfate 1 grams Route: IVPB; Infused Over: 1 hrs; Site: left antecubital; 00:43 Follow up: Response: No adverse reaction; IV Status: Completed infusion Disposition: 02:00 Co-signature as Attending Physician, Antonio Lazo MD. pkl Disposition: 08/04/20 00:43 Discharged to Home. Impression: Calculus of ureter - left. - Condition is Stable. - Discharge Instructions: Kidney Stones, Renal Colic. - Prescriptions for Tylenol- Codeine #3 300-30 mg Oral Tablet - take 2 tablets by ORAL route every 6 hours As needed; 20 tablet. Zofran 4 mg Oral Tablet - take 1 tablet by ORAL route every 12 hours As needed; 20 tablet. Flomax 0.4 mg Oral Capsule, Sust. Release 24 hr - take 1 capsule by ORAL route once daily 1/2 hour following the same meal each day; 5 capsule. Cipro 250 mg Oral Tablet - take 1 tablet by ORAL route every 12 hours for 7 days; 14 tablet. - Medication Reconciliation Form, Thank You Letter, Antibiotic Education, Prescription Opioid Use form. - Follow up: Timo Santo MD; When: 1 - 2 days; Reason: Recheck today's complaints. - Problem is new. - Symptoms have improved. Signatures: Dispatcher [employer] EDMS Ortiz, Bryson, ADIEL RN Antonio Silva MD MD pkJose Enrique Martinez PA PA Trevor Hargrove Bernardo, Shoshana mw2 Corrections: (The following items were deleted from the chart) 01:57 00:43 08/04/2020 00:43 Discharged to Home. Impression: Calculus of ureter - left. mw2 Condition is Stable. Forms are Medication Reconciliation Form, Thank You Letter, Antibiotic Education, Prescription Opioid Use. Follow up: Timo Santo; When: 1 - 2 days; Reason: Recheck today's complaints. Problem is new. Symptoms have improved. cp
[2020-08-04 01:59] LABS: Urine Blood 2+ (NEG); Urine Glucose NEGATIVE (NEG); Urine Protein 1+ (NEG); Urine Specific Gravity >1.030 (1.005-1.030); Urine pH 5.5 (5.0-7.0)
[2020-08-04 02:28] VITALS: O2SAT 95
[2020-08-04 02:30] VITALS: BP 148/89
[2020-08-04 03:06] LABS: Urine Culture Reflex Order NOT NEEDED
[2020-08-04 03:08] LABS: Urine Bacteria <20 /HPF (NONE SEEN); Urine RBC >50 /HPF (NONE SEEN); Urine Urothelial Cells <5 /HPF (NONE SEEN)
--- NOTE | 2020-08-04 09:22 | RAD REPORT ---
EXAM DESCRIPTION: CT ABDOMEN PELVIS WITHOUT IV CONTRAST CLINICAL HISTORY: FLANK PAIN TECHNIQUE: Contiguous axial images obtained through the abdomen and pelvis without IV contrast. Agusto nal and sagittal reformatted images were provided. This exam was performed according to our departmental dose-optimization program, which includes autom ated exposure control, adjustment of the mA and/or kV according to patient size and/or use of iterati ve reconstruction technique. COMPARISON: None available for comparison. FINDINGS: Lung bases: Clear Liver: Grossly unremarkable Gallbladder and biliary system: Unremarkable Pancreas: Grossly unremarkable Spleen: Splenic parenchymal calcifications compatible with remote granulomatous organism exposure. Adrenals: Unremarkable Kidneys: Small bilateral calculi. Mild to moderate left hydronephrosis and proximal hydroureter. 6 mm proximal left ureteral calculus (series 301 image 85, series 302 image 64 and series 303 image 90). Bowel: Moderate stool. Colonic diverticula without adjacent inflammatory change. No obstruction. No a ppreciable mucosal thickening. Appendix: Normal caliber appendix. No findings to suggest acute appendicitis. Urinary bladder: Unremarkable Reproductive: The prostate is mildly enlarged. Lymph nodes: No pathologically enlarged lymph nodes. Peritoneum: No focal fluid collection. No free air. Vessels: Mild to moderate atherosclerotic disease. No abdominal aortic aneurysm. Abdominal wall: Small fat-containing umbilical hernia. Bones: Multilevel spondylosis. No acute fracture. IMPRESSION: 1. Mildly to moderately obstructing 6 mm proximal left ureteral calculus. 2. Other findings as above. Electronically signed by: Jeff Mcconnell MD 08/03/2020 11:28 PM CDT Due to temporary technical issues with the PACS/Fluency reporting system, reports are being signed by the in house radiologist without review as a courtesy to ensure prompt reporting. The interpreting r adiologist is fully responsible for the content of the report.
== END 2020-08-04 01:57 | disposition home or self-care (01) ==
LOC: ER 22:20
DX: N20.1 Calculus of ureter (principal); I10 Essential (primary) hypertension; Z87.442 Personal history of urinary calculi; Z91.013 Allergy to seafood; Z91.048 Other nonmedicinal substance allergy status
CPT/HCPCS: 87088; 85025; 87086; 80048; 36415; 80076; 81003; 81015; 83690; 76377; 74176; J7030; J2405; 96361; 96365; 96375; 99284

== ENCOUNTER 2020-09-22 08:45 | Day surgery (SDC) | payer OTHER ==
--- NOTE | 2020-09-17 17:00 | RAD REPORT ---
EXAM DESCRIPTION: Zay Montanez (2 Views)09/17/2020 4:55 pm CLINICAL HISTORY: Hypertension/preop for lithotripsy COMPARISON: 2017 FINDINGS: The lungs appear clear of acute infiltrate. The heart is borderline enlarged. Postsurgical changes involve the chest. IMPRESSION: No acute abnormalities displayed
[2020-09-17 17:11] LABS: Absolute Lymphocytes (CBC) 1.9 K/uL (0.7-4.9); Basophils % 0.8 % (0-1.3); Hematocrit 43.2 % (39.6-49.0); MPV 9.1 fL (7.6-11.3); RBC Red Blood Cell Count 5.12 M/uL (4.33-5.43)
[2020-09-17 17:12] LABS: Protime INR 0.97
[2020-09-17 17:21] LABS: Potassium 3.8 mmol/L (3.5-5.1)
--- NOTE | 2020-09-19 20:05 | EKG ---
Test Date: 2020-09-17 Test Time: 16:38:24 [employer]ed [employer] Boards Stripper Etcher: HUMERA MEASUREMENT RESULTS: Intervals: Rate: 70 MI: 150 QRSD: 100 QT: 412 QTc: 444 Conde: P: 64 MI: 150 QRS: -2 T: 75 INTERPRETIVE STATEMENTS: Normal sinus rhythm Inferior infarct, age undetermined Abnormal ECG Compared to ECG 12/27/2016 16:00:04 Myocardial infarct finding now present ST (T wave) deviation no longer present Possible ischemia no longer present Electronically Signed On 09-19-20 20:02:45 RECEIVING ROOM CLERK by Ephraim Bender
[~2020-09-22 08:45] MED LIST: AMPICILLIN SODIUM 2 GM in NA CHLORIDE 0.9% 100 ML IVPB SCH; Gentamicin Inj 240 MG in NA CHLORIDE 0.9% 100 ML IV SCH
[2020-09-22] MEDS ORDERED: Ringers Lactate 0 ML IV ONE (09:16)
[2020-09-22] MEDS ORDERED: NA CHLORIDE 0.9% 1,000 ML ONE (09:18)
[2020-09-22] MEDS ORDERED: FENTANYL CITR 100 MCG/2 ML ONE (10:41)
[2020-09-22] MEDS ORDERED: MIDAZOLAM HCL 2 MG/2 ML INJ ONE (10:41)
[2020-09-22] MEDS ORDERED: propofoL 200 MG/20 ML VIAL IV ONE ×2 (10:41→11:44)
[2020-09-22] MEDS ORDERED: LIDOCAINE 1% MPF 5 ML VIAL ONE (10:41)
[2020-09-22] MEDS ORDERED: KETOROLAC 30 MG/ML INJ ONE (11:43)
[2020-09-22] MEDS ORDERED: ONDANSETRON 4 MG/2 ML VIAL ONE (11:44)
[2020-09-22] MEDS ORDERED: NS 0.9% VIAL 10 ML ONE (11:55)
[2020-09-22] MEDS ORDERED: EPHEDRINE SULF 50 MG/ML VIAL ONE (11:55)
[2020-09-22] MEDS ORDERED: PHENAZOPYRIDINE 100MG TAB PO ONE (12:41)
--- NOTE | 2020-09-22 12:49 | RAD REPORT ---
EXAM DESCRIPTION: RAD - Urethrocystogrphy Retrograde - 09/22/2020 12:36 pm FINDINGS: There were 10 portable C-arm images obtained during a fluoroscopic assisted placement of a double pigtail stent in the left collecting system. No suspicious or unexpected finding. Fluoro time was 0.16 minutes.
[2020-09-22] MEDS ORDERED: MORPHINE 4 MG/ML SYR ONE (12:53)
--- OUTSIDE RECORDS SUMMARY | 2020-09-22 14:54 | XMS REPORT | Clinical Summary ---
:1955 Author Organization [facility] Address [address] [place] [address] Care Team Providers Name Role Phone Asked, [...] 81 MG enteric mouth daily. coated tablet atorvastatin Take 1 tablet 90 tablet 0 [...] r) (TOPROL-XL) 50 mg 24 hr tablet clopidogrel Take 1 tablet 90 tablet 3 09/03/2019 Exp ired (PLAVIX) 75 mg (75 mg total) 0 tablet by mouth daily. metoprolol Take 1 [...] Date Hypertension 09/03/2019 Coronary artery disease involving enterprise coronary virgen ry of enterprise heart 09/03/2019 without angina pectoris Apnea 09/03/2019 Vision, loss, sudden, left 09/03/2019 Hx of CABG 09/03/2019 Encounters Date Type Specialty Care Team Description 08/28/2020 Telemedicine Cardiology Phu Bolaños MD Hx of CA BG (Primary Dx); Coronary artery disease involving enterprise coronary artery of enterprise heart without angina pectoris; Essential hyper tension 08/21/2020 Orders Only Cardiology Alexey Bliss MA Coronary arter y disease involving enterprise coronary artery of enterprise heart without angina pectoris (Primary Dx); Hx of CABG; Hypertension, u nspecified type 04/27/2020 Refill Cardiology Bea Smith MA Med Ref ill 04/07/2020 Telephone Cardiology Alexey lBiss MA Medication Que stion (Sildenafil) 04/07/2020 Orders Only Cardiology Alexey Bliss MA 04/06/2020 Refill Cardiology Phu Bolaños MD Med Refi ll 02/19/2020 Travel 02/18/2020 Telemedicine Cardiology Phu Bolaños MD Coronary artery disease involving enterprise coronary artery of enterprise heart without angina pectoris (Primary Dx); Hypertension, u nspecified type; Hx of CABG 02/18/2020 Telephone Cardiology Alexey Bliss MA Appointment (v irtual) 02/17/2020 Travel 02/11/2020 Travel 10/08/2019 Orders Only Cardiology Alexey Bliss MA 10/02/2019 Refill Cardiology Phu Bolaños MD Med Refi ll 09/30/2019 Orders Only Cardiology Alexey Bliss MA after 09/22/2019 Surgical History Surgery Date Site/Laterality Comments CORONARY [...] 1:42 PM CDT Last Filed Vital Signs Not on file Plan of Treatment Health Maintenance Due Date Last Done Comments DIABETES: RETINAL EYE EXAM 1966 DIABETIC FOOT EXAM 1966 URINE MICROALBUMIN 1966 COLONOSCOPY SCREENING 2006 SHINGLES VACCINES (#1) 2006 INFLUENZA VACCINE 05/16/2020 06/24/2019 Procedures Procedure Name Priority Date/Time Associated Diagnosis Comme nts LIPID PANEL Routine 08/25/2020 11:31 AM Coronary artery Resul ts for this [employer]INE[employer] PROFESSOR disease involving procedure are in enterprise coronary artery the r esults of enterprise heart section. without angina pectoris Hx of CABG Hypertension, unspecified type AST (SGOT) Routine 08/25/2020 11:31 AM Coronary artery Resul ts for this [employer] disease involving procedure are in enterprise coronary artery the r esults of enterprise heart section. without angina pectoris Hx of CABG Hypertension, unspecified type after 09/22/2019 Results AST (SGOT) (08/25/2020 11:31 AM PET[employer]LE[employer] ENGINEERING PROFESSOR) Pathologist Sig nature AST 16 10 - 35 U/L [facility] [place] Specimen Blood Narrative Performed At FASTING:YES [facility] FASTING: YES Resulting Agency Comment Performing Organization Information: Site ID: [id number]: [facility] Address: [address] [place] [id number] Director: Rafa Hong Performing Organization Address City/[facility] Phon e Number [facility] [place] [address] [place] [address] Lipid panel (08/25/2020 11:31 AM [employer]LEUM ENGINEERING PROFESSOR) Cholesterol, total 128 <200 mg/dL [facility] [place] HDL cholesterol 32 (L) > OR = 40 [facility] mg/dL [place] Triglycerides 225 (H) <150 mg/dL [facility] Comment: [place] If a non-fasting specimen was collected, consider repeat triglyceride testing on a fasting specimen if clinically indicated. Winston et al. J. of Clin. Lipidol. 2015;9:129-169. LDL cholesterol 68 mg/dL (calc) [facility] calculated Comment: [place] Reference range: <100 Desirable range <100 mg/dL for primary prevention; <70 mg/dL for patients with CHD or diabetic patients with > or = 2 CHD risk factors. LDL-C is now calculated using the Evan calculation, which is a validated novel method providi ng better accuracy than the Friedewald equation in the estimation of LDL-C. Cristian ARGUETA et al. JENNIFER. 2013;310(19): 8781-0847 (http://education.39 Health/faq/IMO446) Cholesterol/HDL 4.0 <5.0 (calc) [facility] ratio [place] Non-HDL cholesterol 96 <130 mg/dL [facility] Comment: (calc) [place] For patients with diabetes plus 1 major ASCVD risk factor, treating to a non-HDL-C goal of <100 mg/dL (LDL-C of <70 mg/dL) is considered a therapeutic option. Specimen Blood Narrative Performed At FASTING:YES [facility] FASTING: YES Resulting Agency Comment Performing Organization Information: Site ID: [id number]: [facility] Address: [address] [place] [address] Director: Rafa Hong Performing Organization Address [facility] Phon e Number [facility] [place] [address] [place] [phone] after 09/22/2019 Advance Directives For more information, please contact: [phone] Type Date Recorded Patient Qa Consultant Explanati on Advance Directives, Living Will and Medical Power of Video Presentation Operator
--- OUTSIDE RECORDS SUMMARY | 2020-09-22 14:54 | XMS REPORT ---
:1955 Author Organization [facility] Address [address] [facility] [address] [place] [address] Care Team Providers Name Role Phone Lise Vila Unavailable [phone] PROBLEMS Type Condition ICD9-CM HCF27-PF Onset Condition SNOMED Code Notes Code Code Dates Status Problem Kidney stones N20.0 Active 14771294 ALLERGIES No Known Allergies ENCOUNTERS from 1955 to 2020-08-20 Encounter Location Date Provider Diagnosis [facility] [address] [facility] [address], Lise Vila [facility] [address] IMMUNIZATIONS No Information SOCIAL HISTORY Tobacco Use: Social History Observation Description Date Details (start date - stop date) Never Smoker Sex Assigned At : Social History Observation Description Sex Assigned At Unknown Alcohol Screen Question Answer Notes Did you have a drink containing alcohol in the past year? No Points 0 Interpretation Negative Tobacco Use/Smoking Question Answer Notes Are you a never smoker REASON FOR REFERRAL No Information VITAL SIGNS No information MEDICATIONS Medication SIG (Take, Route, Frequency, Start Date End Date Status Duration) Atorvastatin Calcium 40 MG 1 tablet Orally Once a day Active Ondansetron 4 MG 1 tablet on the tongue and Active allow to dissolve Orally Once a day Metoprolol Tartrate 50 MG 1 tablet with food Orally Active Twice a day Losartan Potassium 50 MG 1 tablet Orally Once a day Active Tamsulosin HCl 0.4 MG 1 capsule Orally Once a day Active Clopidogrel Bisulfate 75 MG 1 tablet Orally Once a day Active Metformin HCl 500 MG 1 tablet with a meal Orally Active Once a day Claritin 10 MG 1 tablet Orally Once a day Active Aspir-81 81 MG 1 tablet Orally Once a day Active Cipro 250 MG 1 tablet Orally every 12 hrs Active Acetaminophen 500 MG 1 capsule as needed Orally Active every 6 hrs PROCEDURES No Information RESULTS No Results REASON FOR VISIT No Information MEDICAL (GENERAL) HISTORY Type Description Date Surgical History quadruple bypass 2018 Surgical History knee replacement 2018 Goals Section No Information Health Concerns No Information MEDICAL EQUIPMENT No Information MENTAL STATUS No Information FUNCTIONAL STATUS No Information ASSESSMENTS No Information PLAN OF TREATMENT No Information Insurance Providers Payer Name Payer Payer Insured Name Patient Coverage Covera End Address Phone Relationship to Start Date Tae e Insured [employer] [phone] DONAL DOS SANTOS self [id number] [id number]
--- OUTSIDE RECORDS SUMMARY | 2020-09-22 14:54 | XMS REPORT | Continuity of Care Document ---
:1955 Author Organization [facility] t Address [address] [place] [address] Dr. Hanson [address] [place] [id number] Care Team Providers Name Role Phone Asked, Pcp Primary Care Physician Unavailable John Ba MD Attending Clinician Ruthy BUTLER Attending Clinician Unavailable Sarah BUTLER Attending Clinician Unavailable Payers Payer Name Policy Type Policy Effective Date Expiration Date [facility] Number AETNAAETNA PPO [id number] 2019 [place] OPEN 00:00:00 [facility] [id number] ntPPO Problems Condition Condition Condition Status Onset Resolution Last Treating Co mments Source Name Details Category Date Date Treatment Clinician Date Hypertensi Hypertensi Disease [facility] 00:00: st 00 Coronary Coronary Disease Active 2018-10 [place] artery artery 11-03 [facility] disease disease 00:00: st involving involving 00 [place] ven[place]ie coronary coronary artery of artery of venetie venetie heart heart without without angina angina pectoris pectoris Apnea Apnea Disease Active 2018-10 [place] 11-03 Methodi 00:00: st 00 Vision, Vision, Disease Active 2018-10 [place] loss, loss, 11-03 [facility] sudden, sudden, 00:00: [...] Source Natural father No Known Problems Rigo Montero Natural mother Heart failure Oliver Montero Social History Social Habit Start Date Stop Date Quantity Comments Source History [facility] Alcohol Std Drinks History [facility] Alcohol Binge Sex Assigned At M [facility] ethodist Tobacco use and 2019-09-03 2019-09-03 Never used [facility]ist exposure 00:00:00 00:00:00 Alcohol intake 2019-09-03 2019-09-03 Lifetime [place] thodist 00:00:00 00:00:00 non-drinker (finding) History [facility] 2019-09-03 2019-09-03 1 [place] [facility] Alcohol Frequency 00:00:00 00:00:00 Smoking Status Start Date Stop Date Source Never smoker [facility] Medications Ordered Filled Start Stop Current Ordering Indication Dosage Frequency Signature Comments Components Source Medication Medication Date Date Medication? Clinician (SIG) Name Name sildenafiL 2019-0 Yes 100mg Q24H Take 1 [place] (VIAGRA) 6-25 tablet Method[facility] 100 MG 00:00: ([address] tablet 00 total) by mouth daily as needed for erectile dysfunctio n. sildenafiL 2019-0 Yes 100mg Take 1 [place] (VIAGRA) 6-23 tablet [facility] 100 MG 00:00: ([address] tablet 00 total) by mouth as needed for erectile dysfunctio n. sildenafiL 2019-0 2020- No 50mg Take 1 [place] [...] QD Take 1 R[place] ston n (LIPITOR) -19 12-24 tablet (40 M ethodi 40 MG 00:00: 00:00 mg total) st tablet 00 :00 by mouth daily. metoprolol 2018-10- No 50mg Q.5D Take 1 [place] succinate 16 12-24 tablet (50 Met hodi XL 00:00: 00:00 mg total) st (TOPROL-XL) 00 :00 by mouth 2 50 mg 24 hr (two) tablet times a day. atorvastati 2018-10- No 40mg QD Take 1 R[place] ston n (LIPITOR) 216 -18 tablet (40 M ethodi 40 MG 00:00: 00:00 mg total) st tablet 00 :00 by mouth daily. aspirin 2018-10 Yes 81mg QD Take 81 mg [place] (ECOTRIN) 11-03 by mouth Method i 81 MG 08:26: daily. st enteric 47 coated tablet clopidogrel 2018-10- No 75mg QD Take 1 [place] ston (PLAVIX) 75 11-03-18 tablet (75 M ethodi mg tablet 00:00: 23:59 mg total) st 00 :00 by mouth daily. atorvastati 2018-10- No [place] (LIPITOR) 10-16-16 Methodi 40 MG 00:00: 00:00 st tablet 00 :00 metoprolol 2018- No Q.5D 2 (two) [place] ston succinate 07-06 12-16 times a Method i XL 00:00: 00:[address] (TOPROL-XL) 00 :00 50 mg 24 hr tablet metFORMIN Yes Q.5D 2 (two) [place] (GLUCOPHAGE 9-17 times a Metho di ) 500 mg 00:00: day. st tablet 00 nitroglycer Yes as needed. Oliver in 8-14 Methodi (NITROSTAT) 00:00: st 0.4 MG SL 00 tablet Procedures Procedure Date / Time Performed Performing Clinician Sourc e AST (SGOT) 2020-08-25 11:31:00 Marquita Ba odskyla LIPID PANEL 2020-08-25 11:31:00 Marquita Ba Plan of Care Planned Activity Planned Date Details Comments Source Future Scheduled 2020-05-16 INFLUENZA VACCINE [place] [facility] 00:00:00 [code = INFLUENZA VACCINE] Future Scheduled 2006 COLONOSCOPY SCREENING [place] [facility] 00:00:00 [code = COLONOSCOPY SCREENING] Future Scheduled 2006 SHINGLES VACCINES (#1) [place] [facility] 00:00:00 [code = SHINGLES VACCINES (#1)] Future Scheduled 1966 DIABETES: RETINAL EYE [place] [facility] 00:00:00 EXAM [code = DIABETES: RETINAL EYE EXAM] Future Scheduled 1966 DIABETIC FOOT EXAM [place] [facility] 00:00:00 [code = DIABETIC FOOT EXAM] Future Scheduled 1966 URINE MICROALBUMIN [place] [facility] 00:00:00 [code = URINE MICROALBUMIN] Encounters Start End Encounter Admission Attending Care Care Encounter Source Date/Time Date/Time Type Type Clinicians Facility Department ID 2020-09-03 2020-09-03 Outpatient [facility] [id number] 2020-08-28 2020-08-28 Outpatient [facility] [id number] [place] 00:00:00 00:00:00 MARQUITA [address] 2020-08-19 2020-08-19 Outpatient [facility] [id number] 2020-08-05 2020-08-05 Outpatient [facility] [id number] [facility] 2020-02-18 2020-02-18 [facility] [id number] 084 [place] 00:00:00 00:00:00 MARQUITA [address] Results Test Description Test Time Test Comments Results Result Comments Source Lipid panel 2020-08-25 23:35:00 Test Item Value Reference Range Interpretation Comme nts Cholesterol, total (test 128 mg/dL <200 code = 2093-3) HDL cholesterol (test 32 mg/dL > OR = 40 L code = 2085-9) Triglycerides (test code 225 mg/dL <150 H If a non-fasting = 2571-8) specimen was co llected, considerrepeat triglyceride te sting on a fasting speci menif clinically stacey cated. Winston et al. J. of Clin. Lipidol. 2015;9:129-169. LDL cholesterol 68 mg/dL (calc) Reference ra nge: <100 calculated (test code = Adali díaz range <100 94603-4) mg/dL for prima ry prevention; <7 0 mg/dL for patients wi th CHD or diabetic pat ients with > or = 2 C HD risk factors. LDL-C is now calculated renuka dooley the Evan calculation, wh ich is a validated novel method providing brissa r accuracy than t he Bar equa tion in the estimation of LDL-C. Cristian S S et al. JENNIFER. 2013;310( 19): 0720-4726 (http://educati on.Fluent Home /faq/FAQ 164) Cholesterol/HDL ratio 4.0 <5.0 (calc) (test code = 9830-1) Non-HDL cholesterol 96 <130 mg/dL For cam ents with (test code = 48185-8) (calc) diabet es plus 1 major ASCVD risk fact or, treating to a n on-HDL-C goal of <100 mg /dL (LDL-C of <70 m g/dL) is considered a therapeutic opt ion. DANIEL (test code = DANIEL) FASTING:YESFASTING: YES RAC (test code = RAC) Performing Organization Information: Site ID: [facility] Name: [facility] Address: [address] [place] [id number] Director: Rafa Hong Lab Interpretation (test Abnormal code = 27579-7) [facility])2020-08-25 23:35:00 Test Item Value Reference Range Interpretation Comments AST (test code = 16 U/L 1920-05) DANIEL (test code = FASTING:YESFASTING: YES DANIEL) RAC (test code = Performing Organization RAC) Information: Site ID: [facility] Name: [facility] Address: [address] [place] [phone] Director: Rafa Hong Boyd [facility]
--- OUTSIDE RECORDS SUMMARY | 2020-09-22 14:54 | XMS REPORT ---
:1955 Author Organization [facility] Address [address] [facility] [address] [place] [address] Care Team Providers Name Role Phone Lise Vila Unavailable [phone] PROBLEMS Type Condition ICD9-CM [id number] Onset Condition SNOMED Code Notes Code Code Dates Status Problem Kidney stones N20.0 Active 59116299 ALLERGIES No Known Allergies ENCOUNTERS from 1955 to 2020-08-09 Encounter Location Date Provider Diagnosis [facility] Jul, Lise Vila Kidney s tones N20.0 Specialty/Urology [address] [place] [id number] IMMUNIZATIONS No Information SOCIAL HISTORY Tobacco Use: [...] REASON FOR REFERRAL No Information VITAL SIGNS Height 70 in Jul, Weight 279.4 lbs Jul, Temperature 96 degrees Fahrenheit Jul, BMI 40.09 kg/m2 Jul, Oximetry 95 % Jul, Blood pressure systolic 174 mm Hg Jul, Blood pressure diastolic 94 mm Hg Jul, MEDICATIONS Medication SIG (Take, Route, Start Date End Date Status Frequency, Duration) Ketorolac Tromethamine 10 MG 1 tablet with food or Jul, Jul, Active milk as needed Orally every 6 hrs for 5 day(s) Metformin HCl 500 MG 1 tablet with a meal Active Orally Once a day Losartan Potassium 50 MG 1 tablet Orally Once a Active day Ondansetron 4 MG 1 tablet on the tongue A ctive and allow to dissolve Orally Once a day Clopidogrel Bisulfate 75 MG 1 tablet Orally Once a Active day Cipro 250 MG 1 tablet Orally every 12 Act deshaun hrs Acetaminophen 500 MG 1 capsule as needed Active Orally every 6 hrs Atorvastatin Calcium 40 MG 1 tablet Orally Once a Active day Metoprolol Tartrate 50 MG 1 tablet with food Active Orally Twice a day Aspir-81 81 MG 1 tablet Orally Once a Act deshaun day Claritin 10 MG 1 tablet Orally Once a Act deshaun day Tamsulosin HCl 0.4 MG 1 capsule Orally Once a Active day PROCEDURES No Information RESULTS No Results REASON FOR VISIT KIDNEY STONES MEDICAL (GENERAL) HISTORY Type Description Date Surgical History quadruple bypass 2017 Surgical History knee replacement 2017 Goals Section No Information Health Concerns No Information MEDICAL EQUIPMENT No Information MENTAL STATUS No Information FUNCTIONAL STATUS No Information ASSESSMENTS Encounter Date Diagnosis Notes Jul, Kidney stones (ICD-10 - N20.0) PLAN OF TREATMENT Medication Medication Name Sig Start Date Stop Date Ketorolac Tromethamine 10 MG 1 tablet with food or milk as 21 Oc 2019Jul, needed Orally every 6 hrs for 5 day(s) Treatment Notes Assessment Notes Clinical Notes Kidney stones Ketorlac for pain al ternate with CodeineOk to continue flomaxIncrease fluid sConstipation, stool softeners, ok to do Fleets enema08/03/20 20 Cr. 1.20Call in 24 hours to let me know how pain is doingDrBruna Powers reviewed CT and agrees for trial for passage, 2-3 weeks.F /u pending pain and repeat imaging as neededSave stone if possible Treatment Notes Test Name Order Date URINALYSIS AUTO W/O SCOPE (00423) 2020-08-09 [facility]MIC with Reflex to Urine Culture 2020-08-09 PVR 2020-08-09 Next Appt Details 2 Weeks Reason:pending stone passage Follow Up:2 Weekspending stone passage Insurance Providers Payer Name Payer Payer Insured Name Patient Coverage Covera ge End Address Phone Relationship to Start Date Tae e Insured AETNA [phone] RAYADONAL self [id number] [place] [address]
--- OUTSIDE RECORDS SUMMARY | 2020-09-22 14:55 | XMS REPORT ---
:1955 Author Organization [facility] Address [address] [facility] [place] [address] [place] [address] Care Team Providers Name Role Phone Tavo Powers Unavailable [phone] PROBLEMS Type Condition ICD9-CM [id number] Onset Condition SNOMED Code Notes Code Code Dates Status Problem ED (erectile N52.9 Active [id number] dysfunction) Problem Peyronie disease N48.6 Active 1633218 Problem Kidney stones N20.0 Active 97700542 Problem Ureterolithiasis N20.1 Active 85954328 ALLERGIES No Known Allergies ENCOUNTERS from 1955 to 2020-09-03 Encounter Location Date Provider Diagnosis [facility] [facility] Aug, Tavonanci Powers Peyronie dis ease N48.6 ; Specialty/Urology [facility] [address] [facility] (erecti [place], [place] dysfunction) N5 2.9 ; [id number] Ureterolithiasi s N20.1 and BPH loc w u rin obs/LUTS N40.1 IMMUNIZATIONS No Information SOCIAL HISTORY Tobacco Use: [...] No Information VITAL SIGNS Height 70 in Aug, Weight 270.2 lbs Aug, Temperature 98.5 degrees Fahrenheit Aug, BMI 38.77 kg/m2 Aug, Oximetry 96 % Aug, Blood pressure systolic 150 mm Hg Aug, Blood pressure diastolic 81 mm Hg Aug, MEDICATIONS Medication SIG (Take, Route, Notes Start Date End Date Status Frequency, Duration) Metformin HCl 500 MG 1 tablet with a meal Active Orally Once a day Cipro 250 MG 1 tablet Orally every 12 Active hrs Tamsulosin HCl 0.4 MG 1 capsule Orally Once a Active day Ondansetron 4 MG 1 tablet on the tongue Active and allow to dissolve Orally Once a day Clopidogrel Bisulfate 75 MG 1 tablet Orally Once a Active day Claritin 10 MG 1 tablet Orally Once a Active day Acetaminophen 500 MG 1 capsule as needed Active Orally every 6 hrs Aspir-81 81 MG 1 tablet Orally Once a Active day Metoprolol Tartrate 50 MG 1 tablet with food Active Orally Twice a day Losartan Potassium 50 MG 1 tablet Orally Once a Active day Atorvastatin Calcium 40 MG 1 tablet Orally Once a Active day PROCEDURES No Information RESULTS No Results REASON FOR VISIT CONSULT FOR KIDNEY STONES -ISMAEL DELGADO MEDICAL (GENERAL) HISTORY Type Description Date Surgical History quadruple bypass 2017 Surgical History knee replacement 2017 Goals Section No Information Health Concerns No Information MEDICAL EQUIPMENT No Information MENTAL STATUS No Information FUNCTIONAL STATUS No Information ASSESSMENTS Encounter Date Diagnosis Assessment Notes Treatment Notes Treatm ent Clinical Notes Aug, Peyronie disease (ICD-10 - N48.6) Aug, ED (erectile dysfunction) (ICD-10 - N52.9) Aug, Ureterolithiasis (ICD-10 - N20.1) Aug, BPH loc w urin obs/LUTS (ICD-10 - N40.1) Aug, Other Ketorlac for pain alternate with Codeine prn for stone pain Ok to continue flomax Increase fluids Avoid Constipation 2019. PSA 1.5 per patient from PCP, Dr. Torres 08/03/[address] last visit. Save stone if possible Schedule left ureteroscopy, left laser lithotripsy, left stent placement PLAN OF TREATMENT Treatment Notes Test Name Order Date URINALYSIS AUTO W/O SCOPE (38098) 2020-09-03 Insurance Providers Payer Name Payer Payer Insured Name Patient Coverage Covera ge End Address Phone Relationship to Start Date Tae e Insured AET[employer] [phone] DONAL DOS SANTOS self [id number] [address]
[2020-09-22 15:27] VITALS: BP 156/74; TEMP 97.9; O2SAT 97
--- NOTE | 2020-09-22 18:51 | OP ---
Surgeon: STONEY LUKE Preoperative Diagnosis: Left ureterolithiasis. Postoperative Diagnosis: Left ureterolithiasis, approximately 6 mm calculus. Principal Procedure: 1.Cystoscopy. 2.Left ureteroscopy and laser lithotripsy. 3.Left ureteral stent placement. 4.Left retrograde pyelography. Indication For Procedure: Mr. Hudson presented to the Urology Clinic as a recurrent stone former wit h another episode of a 5-6 mm left proximal ureteral calculus as observed on CT. After approximately 6 weeks of a trial of passage, he was still unable to expel the stone and so he presents today for d efinitive operative management. Procedure In Detail: The patient was consented in the preoperative holding area before being transfe rred to the operative suite where general anesthesia was induced. He was given ampicillin 2 g and ge ntamicin 240 mg IV antimicrobial prophylaxis. Pneumo boots were provided for DVT prophylaxis. He wa s placed in the lithotomy position, padded and secured to the table appropriately. The case was begu n using a 22-[place] rigid cystoscope to traverse the urethra and into the bladder with ease. The andree dder was surveyed in its entirety, and there was mild-moderate trabeculation with minimal cellule for mation in the left posterior bladder wall. There was evidence of trilobar hypertrophy of the prostat e with no significant intravesical median lobar projection. There were otherwise no mucosal lesions, foreign bodies, or stones noted within the lumen of the bladder. However, within the left ureteral orifice in an orthotopic trigone, there was abutting dark ureteral calculus. Thus, using a semi-rigi d ureteroscope and pressurized normal saline irrigation, I removed the cystoscope and replaced the ur eteroscope under direct vision into the urethra after placing a Sensor wire via the 5-[place] ureteral access catheter placed via the cystoscope into the putative collecting system with a coil observed f luoroscopically. Then using the semi-rigid ureteroscope, I was able to navigate the scope into the o pening of the ureteral orifice, and using a 365 nm laser fiber and a setting of 0.8 joules and 10 her tz, I was quickly able to fragment the stone into fragments large enough to grab with a basket. Usin g a 2.4-[place]an basket, I was able to grasp the stones and deliver them outside of the ureteral orific e and into the bladder. One of the stones was collected and sent for analysis immediately from the b asketing. The remainder of the stone fragments were collected later when the bladder was decompresse d at the end of the procedure. I surveyed beyond the distal portion of the ureter into the mid dista l ureter for any additional stone fragments, and when none were noted, I discontinued ureteroscopy. Of note, on the CT scan, there were no additional stones within the kidney itself. As a result, I th en replaced the 22-[place] rigid cystoscope by back-loading it over the indwelling safety wire and wit hin the second channel of the cystoscope, I placed the 5-[place] ureteral access catheter and performe d a retrograde pyelogram to ensure the appropriate localization of the wire within the renal pelvis. Left retrograde pyelography: Using a 70:30 mixture of Omnipaque and saline, contrast was injected vi a the 5-[place] ureteral access catheter and did propagate with ease into the renal pelvis and delinea te the calyces. The wire was coiled appropriately within the upper pole of the kidney. As a result, I removed the 5-[place] ureteral access catheter and placed over the indwelling Sensor wire a 6-Frenc h x 26 cm double-J left ureteral stent. A coil was observed fluoroscopically within the upper pole o f the kidney and 1 cystoscopically within the bladder. I then decompressed his bladder of fluid and the remaining stone fragments, which were again also collected for stone analysis. The scope was the n removed, and the patient was taken out of the lithotomy position. He was then awakened from genera l anesthesia, transferred to a stretcher, and then transferred to the recovery room in good condition . Complications: None. Discharge Disposition: He will follow up in the Urology Clinic in 1-2 weeks for cystoscopy and left ureteral stent extraction. I recommend Azo for dysuria and [place] 5 mg tablets were provided for any pain. Following stent extraction, we will ask the patient to do a metabolic stone profiling with 2 x 24 hour urine studies and blood work via [employer]. ANGELICA/MODL Voice ID: [id number] Report ID: [id number]
[2020-09-26] MEDS ORDERED: KETOROLAC 30 MG/ML INJ ONE (11:29)
== END 2020-09-22 14:30 | disposition home or self-care (01) ==
LOC: OR 08:45
PROVIDERS: ATTEND Urology
PROC: 0T778DZ Dilation of Left Ureter with Intraluminal Device, Via Natural or Artificial Opening Endoscopic (ICD-10-PCS; 2020-09-22)
PROC: 0TC78ZZ Extirpation of Matter from Left Ureter, Via Natural or Artificial Opening Endoscopic (ICD-10-PCS; principal; 2020-09-22 09:45)
DX: N20.1 Calculus of ureter (principal); N48.6 Induration penis plastica; N52.9 Male erectile dysfunction, unspecified; N40.1 Benign prostatic hyperplasia with lower urinary tract symptoms; E11.9 Type 2 diabetes mellitus without complications; I25.10 Atherosclerotic heart disease of native coronary artery without angina pectoris; Z20.828 Contact with and (suspected) exposure to other viral communicable diseases; I10 Essential (primary) hypertension; E78.5 Hyperlipidemia, unspecified; Z79.84 Long term (current) use of oral hypoglycemic drugs; Z95.1 Presence of aortocoronary bypass graft; Z96.659 Presence of unspecified artificial knee joint; Z79.01 Long term (current) use of anticoagulants; G47.33 Obstructive sleep apnea (adult) (pediatric); I25.2 Old myocardial infarction; E66.01 Morbid (severe) obesity due to excess calories; Z95.5 Presence of coronary angioplasty implant and graft; Z68.38 Body mass index [BMI] 38.0-38.9, adult
CPT/HCPCS: 36415; 51610; 71046; 74450; 80048; 82360; 82947; 85025; 85610; 87086; 87088; 88300; 93005; J0290; J1580; J2250; J2405; J2704; J3010; J7030; J7120; U0002

== ENCOUNTER 2024-09-11 08:56 | Emergency (ER) | payer OTHER ==
[2024-09-11] MEDS ORDERED: NA CHLORIDE 0.9% 1,000 ML ONE (09:22)
[2024-09-11] MEDS ORDERED: FAMOTIDINE 20 MG/2 ML VIAL IV ONE (09:22)
[2024-09-11] MEDS ORDERED: ONDANSETRON 4 MG/2 ML VIAL ONE (09:22)
[2024-09-11] MEDS ORDERED: MORPHINE 4 MG/ML SYR ONE (09:35)
[2024-09-11 09:44] LABS: Absolute Eosinophils 0.3 K/uL (0-0.5); Absolute Lymphocytes (CBC) 1.5 K/uL (0.7-4.9); Absolute Monocytes 0.5 K/uL (0.1-1.3); Absolute Neutrophil 4.8 K/uL (1.8-8.0); Basophils % 0.7 % (0-1.3); Hematocrit 46.8 % (39.6-49.0); Hemoglobin 15.9 g/dL (13.6-17.9); Lymphocytes % 20.5 % (15.3-44.8); MCH 29.4 pg (27.0-35.0); MCHC 33.9 g/dL (32.0-36.0); MCV 86.5 fL (80-100); MPV 8.8 fL (7.6-11.3); Monocytes % 7.7 % (3.3-12.3); Neutrophils % 67.1 % (41.7-73.7); Nucleated Red Blood Cells % 0.1 % (0-0); Platelets 188 thou/uL (152-406); RBC Red Blood Cell Count 5.41 M/uL (4.33-5.43); Red Cell Distribution Width 13.3 % (12.1-15.2)
[2024-09-11 09:55] LABS: Albumin 3.8 g/dL (3.4-5.0); Albumin/Globulin Ratio 1.1 (1.1-1.8); Anion Gap 6.9 mEq/L (5.0-15.0); Bilirubin Total 0.6 mg/dL (0.2-1.0); Globulin 3.5 g/dL (2.3-3.5); Potassium 3.9 mEq/L (3.5-5.1); Protein, Total 7.3 g/dL (6.4-8.2)
--- NOTE | 2024-09-11 10:10 | RAD REPORT ---
EXAMINATION: US Abdomen Exam Limited CLINICAL HISTORY: [facility] MAIN Y ABD PAIN Bed Name: 5 COMPARISON: None. TECHNIQUE: Limited upper abdominal grayscale and color flow sonographic images. FINDINGS: Gallbladder: Normal. No evidence of calculi, abnormal wall thickening, or pericholecystic fluid. Bile ducts: No intrahepatic or extrahepatic biliary dilatation. Common bile duct measures 5 mm. Liver: Visualized portions of the liver demonstrate normal echogenicity with no suspicious findings. Fluid: No ascites. IMPRESSION: No abnormalities on right upper quadrant ultrasound.
[2024-09-11 10:19] LABS: Specific Gravity 1.007 (1.005-1.030); Sqamous Epithelial None Seen /HPF (None Seen); Urine Bacteria None Seen /HPF (<20); Urine Bilirubin NEGATIVE (Negative); Urine Blood Negative (Negative); Urine Clarity Clear (Clear); Urine Color Colorless (Yellow); Urine Crystals Unidentified Few /HPF (None Seen); Urine Culture Reflex Order NOT NEEDED; Urine Glucose NEGATIVE (Negative); Urine Ketones NEGATIVE (Negative); Urine Microscopic Reflex YN ORDER UMIC; Urine Mucus Slight /HPF (None Seen); Urine Nitrite NEGATIVE (Negative); Urine Protein NEGATIVE (Negative); Urine RBC <5 /HPF (None Seen); Urine Urobilinogen Normal (Normal); Urine WBC <5 /HPF (<5)
--- NOTE | 2024-09-11 11:20 | RAD REPORT ---
EXAMINATION: CT Abdomen Pelvis W Contrast CLINICAL INDICATION: Male, 69 years old. ABD PAIN TECHNIQUE: CT abdomen and pelvis was performed, after the administration of IV contrast, as per depar tment protocol. Axial, sagittal and coronal reconstructions were obtained. One or more of the following dose reduction techniques were used: Automated exposure control, adjustment of the mA and k V according to patient size, and iterative reconstruction. Unless otherwise specified, incidental findings do not require dedicated imaging follow-up. COMPARISON: Abdominal ultrasound of the same day. FINDINGS: LOWER CHEST: The visualized lung bases are clear. LIVER: Normal in size and contour. No focal lesion. BILIARY SYSTEM: No suspicious abnormalities. SPLEEN: Normal size. No focal lesion. PANCREAS: No mass, ductal dilation, or lakeisha-pancreatic fluid. ADRENALS: Normal; no mass. KIDNEYS: Normal size and contour. No hydronephrosis. Few nonobstructing right renal calculi largest m easuring 4 mm. URINARY BLADDER: Unremarkable. GASTROINTESTINAL TRACT: No evidence of free air, significant intra-abdominal free fluid, bowel obstru ction or abscess. APPENDIX: Normal appendix. LYMPH NODES: No lymphadenopathy. MUSCULOSKELETAL: No acute or suspicious osseous abnormality. ADDITIONAL FINDINGS: None. IMPRESSION: Few nonobstructing right renal calculi largest measuring 4 mm. No other acute or concerning abnormalities seen in the abdomen or pelvis.
--- NOTE | 2024-09-11 11:24 | ER ---
Nurse's Notes [facility] Name: Ethan Paredes Age: 69 yrs Sex: Male : 1955 Arrival Date: 09/11/2024 Time: 08:56 Bed 5 Private MD: Diagnosis: Epigastric abdominal tenderness;Obesity, unspecified Presentation: 09/11 09:10 Chief complaint: Patient states: Abdominal pain with some nausea off/on for 6 days. No ll1 known fever. 09:11 Coronavirus screen: Client denies travel out of the [place] in the last 14 days. At this ll1 time, the client does not indicate any symptoms associated with coronavirus-19. Ebola Screen: Patient denies travel to an Ebola-affected area in the 21 days before illness onset. Initial Sepsis Screen: Does the patient meet any 2 criteria? No. Patient's initial sepsis screen is negative. Does the patient have a suspected source of infection? No. Patient's initial sepsis screen is negative. Risk Assessment: Do you want to hurt yourself or someone else? Patient reports no desire to harm self or others. Onset of symptoms was September 05, 2024. 09:11 Method Of Arrival: Ambulatory ll1 09:11 Acuity: ESTEFANIA 3 ll1 Triage Assessment: 09:13 General: Appears uncomfortable, Behavior is calm, cooperative, appropriate for age. ll1 Pain: Complains of pain in abdomen Pain currently is 8 out of 10 on a pain scale. Quality of pain is described as aching, pressure. GI: Reports upper abdominal pain, nausea. Historical: - Allergies: 09:10 Hydrocodone-Acetaminophen; ll1 - PMHx: 09:02 bypass; Diabetes - NIDDM; High Cholesterol; Hypertension; Kidney stones; ll1 - Immunization history:: Adult Immunizations up to date. - Infectious Disease History:: Denies. - Social history:: Smoking status: Patient denies any tobacco usage or history of. - Family history:: not pertinent. Screenin:30 [facility] ED Fall Risk Assessment (Adult) History of falling in the last 3 months, hb including since admission No falls in past 3 months (0 pts) Confusion or Disorientation No (0 pts) Intoxicated or Sedated No (0 pts) Impaired Gait No (0 pts) Mobility Assist Device Used No (0 pt) Altered Elimination No (0 pt) Score/Fall Risk Level 0 - 2 = Low Risk Oriented to surroundings, Maintained a safe environment, Educated pt \T\ family on fall prevention, incl call for assistance when getting out of bed. Abuse screen: Denies threats or abuse. Denies injuries from another. Nutritional screening: No deficits noted. Tuberculosis screening: No symptoms or risk factors identified. Assessment: 09:51 General: Appears in no apparent distress. Behavior is calm, cooperative. Pain: Pain hb currently is 8 out of 10 on a pain scale. Neuro: Level of Consciousness is awake, alert, obeys commands, Oriented to person, place, time, situation. Cardiovascular: Patient's skin is warm and dry. Respiratory: Respiratory effort is even, unlabored, Respiratory pattern is regular, symmetrical. GI: Reports upper abdominal pain, nausea. : No signs and/or symptoms were reported regarding the genitourinary system. EENT: No signs and/or symptoms were reported regarding the EENT system. Derm: Skin is pink, warm \T\ dry. Musculoskeletal: No signs and/or symptoms reported regarding the musculoskeletal system. 10:51 Reassessment: Patient appears in no apparent distress at this time. No changes from kc6 previously documented assessment. Patient and/or family updated on plan of care and expected duration. Pain level reassessed. Patient is alert, oriented x 3, equal unlabored respirations, skin warm/dry/pink. 11:51 Reassessment: Patient appears in no apparent distress at this time. No changes from kc6 previously documented assessment. Patient and/or family updated on plan of care and expected duration. Pain level reassessed. Patient is alert, oriented x 3, equal unlabored respirations, skin warm/dry/pink. Vital Signs: 09:11 BP 167 / 98; Pulse 66; Resp 17; Temp 97.5; Pulse Ox 99% on R/A; Weight 122.47 kg; ll1 Height 5 ft. 10 in. ; Pain 8/10; 12:05 BP 150 / 88; Pulse 60; Resp 17 S; Pulse Ox 98% on R/A; kc6 09:11 Body Mass Index 38.74 (122.47 kg, 177.8 cm) ll1 09:11 Pain Scale: Adult ll1 ED Course: 09:01 Patient arrived in ED. mg5 09:02 Arm band placed on Patient placed in an exam room, on a stretcher. ll1 09:03 Brandie García, ADIEL is Primary Nurse. kc6 09:11 Jose Enrique Vieira MD is Attending Physician. julio 09:12 Triage completed. ll1 09:30 Patient has correct armband on for positive identification. Provided Education on: hb tests, result times. 09:30 Pulse ox on. NIBP on. Door closed. Noise minimized. Lights dimmed. Warm blanket given. kc6 Pillow given. 09:30 Inserted saline lock: 20 gauge in right antecubital area, using aseptic technique. hb Blood collected. Flushed with 10 mL NS. 09:30 Patient maintains SpO2 saturation greater than 95% on room air. kc6 09:32 CBC with Diff Sent. ll1 09:32 CMP Sent. ll1 09:32 Lipase Sent. ll1 09:56 US Abdomen Limited In Process Unspecified. EDMS 10:10 CT Abd/Pelvis - IV Contrast Only In Process Unspecified. EDMS 11:23 Clarence Brooks MD is Referral Physician. [facility] 12:05 No provider procedures requiring assistance completed. IV discontinued, intact, kc6 bleeding controlled, No redness/swelling at site. Pressure dressing applied. Administered Medications: 09:31 Drug: Famotidine IVP 20 mg IVP once; dilute with 10 mL 0.9% NaCl; give over 2 minutes ll1 Route: IVP; Site: right antecubital; 10:18 Follow up: Response: No adverse reaction kc6 09:31 Drug: Ondansetron IVP 4 mg IVP once; over 2 minutes Route: IVP; Site: right antecubital;ll1 10:18 Follow up: Response: No adverse reaction kc6 09:31 Drug: NS 0.9% IV 1000 ml IV at 1 bolus Per protocol; to be given as a bolus over 60 ll1 minutes Route: IV; Rate: 1 bolus; Site: right antecubital; 09:38 Drug: morphine IVP or IV 4 mg IVP once over 4 mins Route: IVP; Infused Over: 4 mins; hb Site: right antecubital; 10:18 Follow up: Response: No adverse reaction; Pain is decreased; RASS: Alert and Calm (0) kc6 12:04 Drug: Pantoprazole PO 40 mg PO once Route: PO; kc6 Medication: 09:52 VIS not applicable for this client. edson Outcome: 11:23 Discharge ordered by . julio 12:05 Discharged to home ambulatory, with significant other, [place] 12:05 Condition: good 12:05 Discharge instructions given to patient, significant other, Instructed on discharge instructions, follow up and referral plans. medication usage, Demonstrated understanding of instructions, follow-up care, medications, Prescriptions given X 3, 12:05 Patient left the ED. kc6 Signatures: Dispatcher [employer] EDIN Jose Enrique Vieira MD MD cha Baxter, Heather, RN India Luna RN RN ll1 Brandie García RN RN kc6 Najma Rocha mg5 Corrections: (The following items were deleted from the chart) 09: 09:02 Allergies: Fish Containing Products; ll1 ll1 09: 09:02 Allergies: Iodine; ll1 ll1
--- NOTE | 2024-09-11 11:24 | EDPHYS ---
Physician Documentation [facility] Name: Ethan Paredes Age: 69 yrs Sex: Male : 1955 Arrival Date: 09/11/2024 Time: 08:56 Bed 5 Private MD: ED Physician Jose Enrique Vieira HPI: 09/11 09:58 This 69 yrs old Male presents to ER via Ambulatory with complaints of julio Abdominal Pain. 09:58 The patient presents with abdominal pain abdominal distention in the upper abdomen, in julio the lower abdomen. Onset: The symptoms/episode began/occurred 2 day(s) ago. The symptoms do not radiate. Associated signs and symptoms: none. The symptoms are described as constant, crampy. Modifying factors: The symptoms are alleviated by nothing, the symptoms are aggravated by nothing. Severity of pain: At its worst the pain was moderate in the emergency department the pain is unchanged. The patient has not experienced similar symptoms in the past. Historical: - Allergies: 09:10 Hydrocodone-Acetaminophen; ll1 - PMHx: 09:02 bypass; Diabetes - NIDDM; High Cholesterol; Hypertension; Kidney stones; ll1 - Immunization history:: Adult Immunizations up to date. - Infectious Disease History:: Denies. - Social history:: Smoking status: Patient denies any tobacco usage or history of. - Family history:: not pertinent. ROS: 09:58 Constitutional: Negative for fever, chills, and weight loss, Eyes: Negative for injury, julio pain, redness, and discharge, ENT: Negative for injury, pain, and discharge, Neck: Negative for injury, pain, and swelling, Cardiovascular: Negative for chest pain, palpitations, and edema, Respiratory: Negative for shortness of breath, cough, wheezing, and pleuritic chest pain, Back: Negative for injury and pain, : Negative for injury, bleeding, discharge, and swelling, MS/Extremity: Negative for injury and deformity, Skin: Negative for injury, rash, and discoloration, Neuro: Negative for headache, weakness, numbness, tingling, and seizure, Psych: Negative for depression, anxiety, suicide ideation, homicidal ideation, and hallucinations, Allergy/Immunology: Negative for hives, rash, and allergies, Endocrine: Negative for neck swelling, polydipsia, polyuria, polyphagia, and marked weight changes, Hematologic/Lymphatic: Negative for swollen nodes, abnormal bleeding, and unusual bruising, 09:58 Abdomen/GI: Positive for abdominal pain, abdominal distension, of the right upper quadrant and left upper quadrant, Exam: 09:58 Constitutional: This is a well developed, well nourished patient who is awake, alert, julio and in no acute distress. Head/Face: Normocephalic, atraumatic. Eyes: Pupils equal round and reactive to light, extra-ocular motions intact. Lids and lashes normal. Conjunctiva and sclera are non-icteric and not injected. Cornea within normal limits. Periorbital areas with no swelling, redness, or edema. ENT: Nares patent. No nasal discharge, no septal abnormalities noted. Tympanic membranes are normal and external auditory canals are clear. Oropharynx with no redness, swelling, or masses, exudates, or evidence of obstruction, uvula midline. Mucous membranes moist. Neck: Trachea midline, no thyromegaly or masses palpated, and no cervical lymphadenopathy. Supple, full range of motion without nuchal rigidity, or vertebral point tenderness. No Meningismus. Chest/axilla: Normal chest wall appearance and motion. Nontender with no deformity. No lesions are appreciated. Cardiovascular: Regular rate and rhythm with a normal S1 and S2. No gallops, murmurs, or rubs. Normal PMI, no JVD. No pulse deficits. Respiratory: Lungs have equal breath sounds bilaterally, clear to auscultation and percussion. No rales, rhonchi or wheezes noted. No increased work of breathing, no retractions or nasal flaring. Back: No spinal tenderness. No costovertebral tenderness. Full range of motion. Male : Normal genitalia with no discharge or lesions. Skin: Warm, dry with normal turgor. Normal color with no rashes, no lesions, and no evidence of cellulitis. MS/ Extremity: Pulses equal, no cyanosis. Neurovascular intact. Full, normal range of motion. Neuro: Awake and alert, GCS 15, oriented to person, place, time, and situation. Cranial nerves II-XII grossly intact. Motor strength 5/5 in all extremities. Sensory grossly intact. Cerebellar exam normal. Normal gait. Psych: Awake, alert, with orientation to person, place and time. Behavior, mood, and affect are within normal limits. 09:58 Abdomen/GI: Inspection: distension, Bowel sounds: normal, Palpation: moderate abdominal tenderness, in the right upper quadrant, Liver: no appreciated palpable abnormalities, Hernia: not appreciated, 11:42 ECG was reviewed by the Attending Physician. [facility] Vital Signs: 09:11 BP 167 / 98; Pulse 66; Resp 17; Temp 97.5; Pulse Ox 99% on R/A; Weight 122.47 kg; ll1 Height 5 ft. 10 in. ; Pain 8/10; 12:05 BP 150 / 88; Pulse 60; Resp 17 S; Pulse Ox 98% on R/A; kc6 09:11 Body Mass Index 38.74 (122.47 kg, 177.8 cm) ll1 09:11 Pain Scale: Adult ll1 MDM: 09:11 Medical Screening Exam initiated julio 10:02 Differential diagnosis: cholecystitis, Cholelithiasis, gastritis, gastroesophageal julio reflux disease, Hepatitis, non-specific abd pain, pancreatitis, Peptic Ulcer Disease, Peritonitis, Ureterolithiasis, urinary tract infection. Data reviewed: vital signs, nurses notes, lab test result(s), radiologic studies, CT scan, ultrasound. Consideration of Admission/Observation Escalation of care including admission/observation considered. I considered the following discharge prescriptions or medication management in the emergency department Medications were administered in the Emergency Department. See MAR. Independent interpretation of the following test(s) in the Emergency Department CT Scan: My interpretation is ct ab/pel. Care significantly affected by the following chronic conditions: Diabetes, Hypertension, Obesity, kidney stones, obese. 09/11 09:14 Order name: CBC with Diff; Complete Time: 10:50 [facility] 09/11 09:14 Order name: CMP; Complete Time: 10:50 [facility] 09/11 09:14 Order name: Lipase; Complete Time: 10:50 [facility] 09/11 09:14 Order name: Urinalysis w/ reflexes; Complete Time: 10:50 [facility] 09/11 09:14 Order name: CT Abd/Pelvis - IV Contrast Only; Complete Time: 11:22 [facility] 09/11 09:33 Order name: US Abdomen Limited; Complete Time: 10:50 [facility] 09/11 11:22 Order name: EKG; Complete Time: 11: [facility] 09/11 09:14 Order name: IV Saline Lock; Complete Time: 09:31 [facility] 09/11 09:14 Order name: Labs collected and sent; Complete Time: : julio 09/11 11:22 Order name: EKG - Nurse/Tech; Complete Time: :33 julio EC:42 Rate is 60 beats/min. Rhythm is regular. QRS [place] is Normal. [place] interval is normal. QRS julio interval is normal. QT interval is normal. No Q waves. T waves are Normal. No ST changes noted. Clinical impression: NSR w/ Non-specific ST/T Changes and No evidence of ischemia. Interpreted by me. Reviewed by me. Administered Medications: :31 Drug: Famotidine IVP 20 mg IVP once; dilute with 10 mL 0.9% NaCl; give over 2 minutes ll1 Route: IVP; Site: right antecubital; 10:18 Follow up: Response: No adverse reaction [facility] 09:31 Drug: Ondansetron IVP 4 mg IVP once; over 2 minutes Route: IVP; Site: right antecubital;ll1 10:18 Follow up: Response: No adverse reaction [facility] 09:31 Drug: NS 0.9% IV 1000 ml IV at 1 bolus Per protocol; to be given as a bolus over 60 ll1 minutes Route: IV; Rate: 1 bolus; Site: right antecubital; 09:38 Drug: morphine IVP or IV 4 mg IVP once over 4 mins Route: IVP; Infused Over: 4 mins; hb Site: right antecubital; 10:18 Follow up: Response: No adverse reaction; Pain is decreased; RASS: Alert and Calm (0) [facility] 12:04 Drug: Pantoprazole PO 40 mg PO once Route: PO; kc6 Disposition Summary: 09/11/24 11:23 Discharge Ordered Notes: Location: Home julio Problem: new julio Symptoms: have improved julio Condition: Stable julio Diagnosis - Epigastric abdominal tenderness julio - Obesity, unspecified julio Followup: julio - With: Private Physician - When: 2 - 3 days - Reason: Recheck today's complaints, Continuance of care, Re-evaluation by your physician Followup: julio - With: Clarence Brooks MD - When: 2 - 3 days - Reason: Recheck today's complaints, Re-evaluation by your physician Discharge Instructions: - Discharge Summary Sheet julio - Abdominal Pain, Adult julio - Obesity, Adult julio - Abdominal Pain, Adult, [id number] julio - Obesity, Adult, [id number] [facility] Forms: - Medication Reconciliation Form julio - Antibiotic Education julio - Prescription Opioid Use julio - Patient Portal Instructions [facility] - Leadership Thank You Letter [facility] Prescriptions: - ondansetron 4 mg Oral Tablet,disintegrating - take 1 tablet ORAL route every 8 hours for 5 days; 20 tablet; Refills: 0, [facility] Product Selection Permitted - Protonix 40 mg Oral Tablet - take 1 tablet ORAL route once daily; 30 tablet; Refills: 0, Product Selection [facility] Permitted - dicyclomine 20 mg Oral tablet - take 1 tablet ORAL route 4 times per day; 28 tablet; Refills: 0, Product [facility] Selection Permitted Signatures: Dispatcher [employer] EDJose Enrique Reno MD MD cha Baxter, Heather RN RN India Lutz RN RN ll1 Brandie García RN RN kc6 Corrections: (The following items were deleted from the chart) 09:10 09:02 Allergies: Fish Containing Products; ll1 ll1 09:10 09:02 Allergies: Iodine; ll1 ll1 09:14 09:14 CBC+H.LAB.BRZ ordered. EDMS EDMS 09:14 09:14 COMPREHENSIVE METABOLIC PANEL+C.LAB.BRZ ordered. EDMS EDMS 09:14 09:14 LIPASE+C.LAB.BRZ ordered. EDMS EDMS 09:14 09:14 Urinalysis+U.LAB.BRZ ordered. EDMS EDMS 09:15 09:14 Abdomen Pelvis W Con+CT.RAD.BRZ ordered. EDMS EDMS
[2024-09-11] MEDS ORDERED: PANTOPRAZOLE 40MG TABLET PO ONE (11:58)
[2024-09-11 13:16] VITALS: TEMP 97.5
[2024-09-11 13:17] VITALS: BP 150/88; O2SAT 98
--- NOTE | 2024-09-13 09:49 | EKG ---
Test Date: 2024-09-11 Test Time: 11:31:44 Deputy Director Of Public Works: AM MEASUREMENT RESULTS: Intervals: Rate: 60 NM: 186 QRSD: 102 QT: 430 QTc: 430 [place]: P: 33 NM: 186 QRS: -20 T: 62 INTERPRETIVE STATEMENTS: Normal sinus rhythm Inferior infarct, age undetermined Cannot rule out Anterior infarct, age undetermined Abnormal ECG Compared to ECG 09/17/2020 16:38:24 No significant changes Electronically Signed On 09-13-24 09:47:23 C SOFTWARE DEVELOPER by Markie London
== END 2024-09-11 12:05 | disposition home or self-care (01) ==
LOC: ER 08:56
DX: R10.816 Epigastric abdominal tenderness (principal); E66.9 Obesity, unspecified; E11.9 Type 2 diabetes mellitus without complications; I10 Essential (primary) hypertension; Z87.442 Personal history of urinary calculi
CPT/HCPCS: 93005; 85025; 81001; 36415; 83690; 80053; 74177; 76705; 96375; 96374; 99284; Q9967; J2405; J7030

== ENCOUNTER 2024-09-18 21:24 | Emergency (ER) | payer OTHER ==
[2024-09-18 22:52] LABS: Absolute Basophils 0.1 K/uL (0-0.5); Absolute Eosinophils 0.3 K/uL (0-0.5); Absolute Lymphocytes (CBC) 1.9 K/uL (0.7-4.9); Absolute Monocytes 0.7 K/uL (0.1-1.3); Absolute Neutrophil 5.7 K/uL (1.8-8.0); Basophils % 0.8 % (0-1.3); Eosinophils % 3.3 % (0-4.4); Hematocrit 44.1 % (39.6-49.0); Hemoglobin 14.9 g/dL (13.6-17.9); MCH 28.9 pg (27.0-35.0); MCHC 33.8 g/dL (32.0-36.0); MCV 85.4 fL (80-100); MPV 8.2 fL (7.6-11.3); Monocytes % 8.3 % (3.3-12.3); Neutrophils % 65.6 % (41.7-73.7); Nucleated Red Blood Cells % 0.1 % (0-0); Platelets 173 thou/uL (152-406); RBC Red Blood Cell Count 5.16 M/uL (4.33-5.43); Red Cell Distribution Width 13.2 % (12.1-15.2)
[2024-09-18] MEDS ORDERED: KETOROLAC 30 MG/ML INJ ONE (22:52)
[2024-09-18] MEDS ORDERED: ACYCLOVIR 400 MG TABLET ONE (22:52)
[2024-09-18] MEDS ORDERED: NA CHLORIDE 0.9% 1,000 ML ONE (22:53)
[2024-09-18] MEDS ORDERED: MORPHINE 4 MG/ML SYR ONE (22:53)
[2024-09-18 23:11] LABS: Albumin 3.5 g/dL (3.4-5.0); Anion Gap 9.6 mEq/L (5.0-15.0); Bilirubin Total 0.5 mg/dL (0.2-1.0); Globulin 3.4 g/dL (2.3-3.5); Potassium 3.6 mEq/L (3.5-5.1); Protein, Total 6.9 g/dL (6.4-8.2)
[2024-09-19 01:33] LABS: NT PRO-BNP 42 pg/mL (<125); Troponin High Sensitivity 12.1 pg/mL (<58.9)
[2024-09-19 01:37] LABS: C-Reactive Protein < 2.90 mg/L (<3.00)
--- NOTE | 2024-09-19 01:49 | ER ---
Nurse's Notes [facility] Name: Ethan Paredes Age: 69 yrs Sex: Male : 1955 Arrival Date: 09/18/2024 Time: 21:24 Bed 15 Private MD: Biju Torres C Diagnosis: Upper Right Abdominal pain, Acute Shingles Presentation: 09/18 21:43 Chief complaint: Patient states: right sided abdominal pain, flank pain radiating to lg3 the chest. seen last week here for the same thing and pain is not getting any better. saw urologist today and he said the pain is not urinary related. Coronavirus screen: Client denies travel out of the [place] in the last 14 days. At this time, the client does not indicate any symptoms associated with coronavirus-19. Ebola Screen: No symptoms or risks identified at this time. Initial Sepsis Screen: Does the patient meet any 2 criteria? No. Patient's initial sepsis screen is negative. Does the patient have a suspected source of infection? No. Patient's initial sepsis screen is negative. Risk Assessment: Do you want to hurt yourself or someone else? Patient reports no desire to harm self or others. Onset of symptoms is unknown. 21:43 Method Of Arrival: Ambulatory lg3 21:43 Acuity: ESTEFANIA 3 lg3 Triage Assessment: 21:45 General: Appears in no apparent distress. uncomfortable, Behavior is calm, cooperative. lg3 Pain: Complains of pain in right flank, abdomen, chest. EENT: No deficits noted. No signs and/or symptoms were reported regarding the EENT system. Neuro: No deficits noted. Moreno Agitation-Sedation Scale (RASS): 0 - Alert and Calm Level of Consciousness is awake, alert, obeys commands, Oriented to person, place, time, situation. Cardiovascular: No deficits noted. Reports chest pain, Capillary refill < 3 seconds Clubbing of nail beds is absent JVD is absent Patient's skin is warm and dry. Respiratory: No deficits noted. Airway is patent Respiratory effort is even, unlabored, Respiratory pattern is regular, symmetrical. GI: Abdomen is round non-distended, Reports lower abdominal pain, upper abdominal pain, cramping, nausea. : No signs and/or symptoms were reported regarding the genitourinary system. Derm: No deficits noted. No signs and/or symptoms reported regarding the dermatologic system. Skin is intact, is healthy with good turgor, Skin is dry, Skin is normal, Skin temperature is warm. Musculoskeletal: Circulation, motion, and sensation intact. Range of motion: intact in all extremities. Historical: - Allergies: 21:45 Hydrocodone-Acetaminophen; lg3 - PMHx: 21:45 bypass; Diabetes - NIDDM; High Cholesterol; Hypertension; Kidney stones; lg3 - PSHx: 21:45 quadruple bypass (Kidney stones); left knee rplacement (Kidney stones); lg3 - Immunization history:: Adult Immunizations up to date. - Infectious Disease History:: Denies. - Social history:: Smoking status: Patient denies any tobacco usage or history of. Patient/guardian denies using alcohol, street drugs. - Family history:: not pertinent. Screenin/05 02:01 [facility] ED Fall Risk Assessment (Adult) History of falling in the last 3 months, cp4 including since admission No falls in past 3 months (0 pts) Confusion or Disorientation No (0 pts) Intoxicated or Sedated No (0 pts) Impaired Gait No (0 pts) Mobility Assist Device Used No (0 pt) Altered Elimination No (0 pt) Score/Fall Risk Level 0 - 2 = Low Risk Oriented to surroundings, Maintained a safe environment, Assessed \T\ reinforced patient's understanding of fall precautions, Hourly rounding (assess needs \T\ fall precautionary measures) done. Abuse screen: Denies threats or abuse. Nutritional screening: No deficits noted. Tuberculosis screening: No symptoms or risk factors identified. Assessment: 01:11 Reassessment: Patient appears in no apparent distress at this time. Patient and/or jb4 family updated on plan of care and expected duration. Pain level reassessed. Patient is alert, oriented x 3, equal unlabored respirations, skin warm/dry/pink. Vital Signs: 09/18 21:43 BP 157 / 89; Pulse 72; Resp 17 S; Temp 98(O); Pulse Ox 97% on R/A; Weight 121.56 kg lg3 (R); Height 5 ft. 10 in. (R); Pain 9/10; 09/19 01:13 BP 147 / 83; Pulse 93; Resp 12; Pulse Ox 95% on R/A; jb4 02:00 BP 152 / 84; Pulse 63; Resp 18; Pulse Ox 96% ; cp4 09/18 21:43 Body Mass Index 38.45 (121.56 kg, 177.8 cm) lg3 12 21:43 Pain Scale: Adult lg3 ED Course: 09/18 21:25 Patient arrived in ED. gm2 21:25 Biju Torres MD is Private Physician. gm2 21:27 Harvinder Israel MD is Attending Physician. sp4 21:45 Triage completed. lg3 21:45 Arm band placed on right wrist. lg3 22:46 Inserted saline lock: 18 gauge in right antecubital area, using aseptic technique. jb4 Blood collected. 22:48 CBC with Diff Sent. jb4 22:48 CMP Sent. jb4 22:48 Lipase Sent. jb4 22:48 CRP Sent. jb4 22:48 Troponin High Sensitivity Sent. jb4 22:48 BNP Sent. jb4 23:37 CT Chest, Abdomen, Pelvis - W/Contrast In Process Unspecified. EDMS 09/19 01:11 Ajith Santana, RN is Primary Nurse. jb4 01:46 Biju Torres MD is Referral Physician. sp4 02:01 Bed in low position. Call light in reach. Side rails up X 1. Provided Education on: cp4 shingles. 02:01 No provider procedures requiring assistance completed. intact, bleeding controlled, No cp4 redness/swelling at site. Pressure dressing applied. Administered Medications: 09/18 23:04 Drug: NS 0.9% IV 1000 ml IV at 1 bolus Per protocol; to be given as a bolus over 60 jb4 minutes Route: IV; Rate: 1 bolus; Site: right antecubital; 09/19 02:03 Follow up: Response: No adverse reaction; IV Status: Completed infusion 4 09/18 23:04 Drug: morphine IVP or IV 8 mg IVP once over 4 mins Route: IVP; Infused Over: 4 mins; jb4 Site: right antecubital; 09/19 01:59 Follow up: Response: No adverse reaction 4 09/18 23:04 Drug: Ketorolac IVP 30 mg IVP once Route: IVP; Site: right antecubital; jb4 09/19 01:59 Follow up: Response: No adverse reaction 4 09/18 23:04 Drug: Acyclovir PO 800 mg PO once Route: PO; jb4 09/19 01:59 Follow up: Response: No adverse reaction cp4 01:59 Drug: Acetaminophen-Codeine PO (300 mg-30 mg) 2 tabs PO once; RASS on ADMIN: Combtv4, cp4 Very Agttd3, Agttd2, Rstlss1, AlertClm0, Drwsy-1, Lt Sdtn-2, Mod Sdtn-3, Dp Sdtn-4, UnArsble-5 Route: PO; 02:00 Follow up: Response: No adverse reaction cp4 Medication: 02:01 VIS not applicable for this client. cp4 Outcome: 01:49 Discharge ordered by . sp4 02:01 Discharged to home ambulatory, cp4 02:01 Condition: stable 02:01 Discharge instructions given to patient, family, Instructed on discharge instructions, follow up and referral plans. medication usage, Demonstrated understanding of instructions, follow-up care, medications, Prescriptions given X 2, 02:02 Patient left the ED. cp4 Signatures: Dispatcher [employer] EDMS Ajith Santana, RN RN jb4 Eunice Hoang RN RN lg3 Harvinder Israel MD MD sp4 Kaylyn Drake cp4 [facility]
--- NOTE | 2024-09-19 01:49 | EDPHYS ---
Physician Documentation [facility] Name: Ethan Paredes Age: 69 yrs Sex: Male : 1955 Arrival Date: 09/18/2024 Time: 21:24 Bed 15 Private MD: Biju Torres C ED Physician Harvinder Israel HPI: 09/18 21:58 This 69 yrs old Male presents to ER via Ambulatory with complaints of sp4 Abdominal Pain, Abdominal Cramping, Chest Pain. 09/19 01:41 69 -year-old male presents with right upper quadrant abdominal pain for the past 2 sp4 weeks. 01:42 Patient was here 09/11/2024 and had a full abdominal workup including CAT scan and sp4 ultrasound that did not reveal any particular problem. 01:42 Patient was informed that he may have possibly shingles rash. sp4 Historical: - Allergies: 09/18 21:45 Hydrocodone-Acetaminophen; lg3 - PMHx: 21:45 bypass; Diabetes - NIDDM; High Cholesterol; Hypertension; Kidney stones; lg3 - PSHx: 21:45 quadruple bypass (Kidney stones); left knee rplacement (Kidney stones); lg3 - Immunization history:: Adult Immunizations up to date. - Infectious Disease History:: Denies. - Social history:: Smoking status: Patient denies any tobacco usage or history of. Patient/guardian denies using alcohol, street drugs. - Family history:: not pertinent. ROS: 09/19 01:42 Constitutional: Negative for fever, chills, and weight loss, positive right upper sp4 quadrant pain 05:51 All other systems are negative, sp4 Exam: 05:51 Constitutional: This is a well developed, well nourished patient who is awake, alert, sp4 and in no acute distress. Head/Face: Normocephalic, atraumatic. Eyes: Pupils equal round and reactive to light, extra-ocular motions intact. Lids and lashes normal. Conjunctiva and sclera are not injected. Cornea within normal limits. Periorbital areas with no swelling, redness, or edema. ENT: Nares patent. No nasal discharge, no septal abnormalities noted. Tympanic membranes are normal and external auditory canals are clear. Oropharynx with no redness, swelling, or masses, exudates, or evidence of obstruction, uvula midline. Mucous membranes moist. Neck: Trachea midline, no thyromegaly or masses palpated, and no cervical lymphadenopathy. Supple, full range of motion without nuchal rigidity, or vertebral point tenderness. Chest/axilla: Normal chest wall appearance and motion. Nontender with no deformity. No lesions are appreciated. Cardiovascular: Regular rate and rhythm with a normal S1 and S2. No gallops, murmurs, or rubs. Normal PMI, no JVD. No pulse deficits. Respiratory: Lungs have equal breath sounds bilaterally, clear to auscultation and percussion. No rales, rhonchi or wheezes noted. No increased work of breathing, no retractions or nasal flaring. Abdomen/GI: Soft, with normal bowel sounds. No distension or tympany. No guarding or rebound. Positive right upper quadrant tenderness Back: No spinal tenderness. No costovertebral tenderness. Male : Normal genitalia with no discharge or lesions. Skin: Warm, dry with normal turgor. Normal color with no rashes, no lesions, and no evidence of cellulitis. MS/ Extremity: Pulses equal, no cyanosis. Neurovascular intact. Full, normal range of motion. Neuro: Awake and alert, GCS 15, oriented to person, place, time, and situation. Cranial nerves II-XII grossly intact. Motor strength 5/5 in all extremities. Sensory grossly intact. Psych: Awake, alert, with orientation to person, place and time. Behavior, mood, and affect are within normal limits 05:51 ECG was reviewed by the Attending Physician. All right EKG 2214 normal sinus rhythm normal EKG Vital Signs: 09/18 21:43 BP 157 / 89; Pulse 72; Resp 17 S; Temp 98(O); Pulse Ox 97% on R/A; Weight 121.56 kg lg3 (R); Height 5 ft. 10 in. (R); Pain 06/25; 09/19 01:13 BP 147 / 83; Pulse 93; Resp 12; Pulse Ox 95% on R/A; jb4 02:00 BP 152 / 84; Pulse 63; Resp 18; Pulse Ox 96% ; cp4 09/18 21:43 Body Mass Index 38.45 (121.56 kg, 177.8 cm) lg3 09/18 21:43 Pain Scale: Adult lg3 MDM: 09/18 21:35 Medical Screening Exam initiated sp4 09/19 01:30 ED course: COMPARISON: CT abdomen/pelvis from September 11, 2024. TECHNIQUE: CT of the sp4 chest, abdomen, and pelvis was performed following intravenous administration of iodinated contrast. Oral contrast was not administered. Axial, coronal, and sagittal reconstructions were created and sent to PACS. This exam was performed according to our departmental dose-optimization program, which includes automated exposure control, adjustment of the mA and/or kV according to patient size and/or use of iterative reconstruction technique. FINDINGS: Lungs and pleura: No pulmonary consolidation. No pleural effusion. No pneumothorax. Mediastinum and neck: No mediastinal lymphadenopathy identified by CT size criteria. Unremarkable appearance of the thyroid gland. Cardiac: No cardiomegaly or pericardial effusion. No thoracic aortic aneurysm or dissection. Hepatobiliary: No concerning hepatic lesion identified. The portal veins are patent. The gallbladder is unremarkable. No biliary ductal dilatation. Pancreas: Unremarkable. Spleen: Few small calcified granulomata in the spleen. Gastrointestinal: No evidence of bowel obstruction or perienteric inflammation. The appendix is normal. Mild left colonic diverticulosis. Small stool burden. Adrenals: No abnormality identified in either adrenal gland. Renal: Few small nonobstructive right renal calculi. No concerning parenchymal abnormality in either kidney. No hydronephrosis or ureteral calculi bilaterally. Bladder/Reproductive: Unremarkable appearance of the urinary bladder by CT technique. Mild prostatomegaly. Vascular/Lymphatics: No lymphadenopathy identified by CT size criteria. Abdominal aorta is normal in caliber. Mild calcific atherosclerosis. Musculoskeletal: No concerning osseous lesion identified. Fluid / peritoneum: No significant free fluid. No free intraperitoneal air identified. IMPRESSION No acute abnormality identified in the abdomen or pelvis by CT. Electronically signed by: Madelyn Lundberg MD 09/19/2024 12:38 AM [facility] . 06:00 ED course: . sp4 06:00 Differential diagnosis: Cholelithiasis, cholecystitis, diverticulitis, pancreatitis, sp4 shingles rash. Data reviewed: vital signs, nurses notes, lab test result(s), EKG, radiologic studies. 06:02 Consideration of Admission/Observation Escalation of care including sp4 admission/observation considered. ED course: Patient on further examination has small amount of blistering lesions to the right side of his chest. This is consistent with acute shingles rash. Will provide pain management with Tylenol with codeine and additionally with the Valtrex. 09/18 21:28 Order name: CBC with Diff; Complete Time: : sp4 09/18 21:28 Order name: CMP; Complete Time: 01:29 sp4 09/18 21:28 Order name: Lipase; Complete Time: 01:29 sp4 09/18 21:59 Order name: CRP; Complete Time: : sp4 09/18 21:59 Order name: Troponin High Sensitivity; Complete Time: 01: sp4 09/18 21:59 Order name: BNP; Complete Time: 01: sp4 09/18 21:59 Order name: CT Chest, Abdomen, Pelvis - W/Contrast sp4 09/18 21:28 Order name: IV Saline Lock; Complete Time: 22:48 sp4 09/18 21:28 Order name: Labs collected and sent; Complete Time: 22:48 sp4 EC/04 22:14 Rate is 67 beats/min. Rhythm is regular, Normal Sinus Rhythm. QRS [place] is Normal. MI sp4 interval is normal. QRS interval is normal. QT interval is normal. No Q waves. T waves are Normal. No ST changes noted. Clinical impression: No evidence of ischemia. Interpreted by me. Reviewed by me. Administered Medications: 23:04 Drug: NS 0.9% IV 1000 ml IV at 1 bolus Per protocol; to be given as a bolus over 60 jb4 minutes Route: IV; Rate: 1 bolus; Site: right antecubital; 09/19 02:03 Follow up: Response: No adverse reaction; IV Status: Completed infusion [facility] 09/18 23:04 Drug: morphine IVP or IV 8 mg IVP once over 4 mins Route: IVP; Infused Over: 4 mins; jb4 Site: right antecubital; 09/19 01:59 Follow up: Response: No adverse reaction 4 09/18 23:04 Drug: Ketorolac IVP 30 mg IVP once Route: IVP; Site: right antecubital; jb4 09/19 01:59 Follow up: Response: No adverse reaction [facility] 09/18 23:04 Drug: Acyclovir PO 800 mg PO once Route: PO; jb4 09/19 01:59 Follow up: Response: No adverse reaction cp4 01:59 Drug: Acetaminophen-Codeine PO (300 mg-30 mg) 2 tabs PO once; RASS on ADMIN: Combtv4, cp4 Very Agttd3, Agttd2, Rstlss1, AlertClm0, Drwsy-1, Lt Sdtn-2, Mod Sdtn-3, Dp Sdtn-4, UnArsble-5 Route: PO; 02:00 Follow up: Response: No adverse reaction cp4 Disposition Summary: 09/19/24 01:49 Discharge Ordered Notes: Location: Home sp4 Problem: new sp4 Symptoms: have improved sp4 Condition: Stable sp4 Diagnosis - Upper Right Abdominal pain, Acute Shingles sp4 Followup: sp4 - With: Biju Torres MD - When: Today - Reason: Recheck today's complaints Discharge Instructions: - Discharge Summary Sheet sp4 - Shingles, [id number] sp4 Forms: - Patient Portal Instructions sp4 Prescriptions: - acetaminophen-codeine 300-60 mg Oral tablet - take 1 tablet ORAL route every 6 hours PRN pain; 30 tablet; Refills: 0, Product sp4 Selection Permitted - valacyclovir 1 gram Oral tablet - take 1 tablet ORAL route 2 times per day for 14 days; 28 tablet; Refills: 0, sp4 Product Selection Permitted Signatures: Dispatcher [employer] Ajith Carlin RN RN jb4 Eunice Hoang RN RN lg3 Harvinder Israel MD MD sp4 Kaylyn Drake cp4 Corrections: (The following items were deleted from the chart) 09/18 22:00 22:00 C-REACTIVE PROTEIN+C.LAB.BRZ ordered. EDMS EDMS 22:00 22:00 Troponin High Sensitivity+C.LAB.BRZ ordered. EDMS EDMS 22:00 22:00 PROBNP+C.LAB.BRZ ordered. EDMS EDMS
[2024-09-19] MEDS ORDERED: CODEINE 30MG/APAP 300MG TAB ONE (01:52)
--- NOTE | 2024-09-19 01:53 | RAD REPORT ---
CLINICAL HISTORY: CHEST PAIN. COMPARISON: CT abdomen/pelvis from September 11, 2024. TECHNIQUE: CT of the chest, abdomen, and pelvis was performed following intravenous administration of iodinated contrast. Oral contrast was not administered. Axial, coronal, and sagittal reconstructions were created and sent to PACS. This exam was performed according to our departmental dose-optimization program, which includes autom ated exposure control, adjustment of the mA and/or kV according to patient size and/or use of iterative reconstruction technique. FINDINGS: Lungs and pleura: No pulmonary consolidation. No pleural effusion. No pneumothorax. Mediastinum and neck: No mediastinal lymphadenopathy identified by CT size criteria. Unremarkable byron earance of the thyroid gland. Cardiac: No cardiomegaly or pericardial effusion. No thoracic aortic aneurysm or dissection. Hepatobiliary: No concerning hepatic lesion identified. The portal veins are patent. The gallbladder is unremarkable. No biliary ductal dilatation. Pancreas: Unremarkable. Spleen: Few small calcified granulomata in the spleen. Gastrointestinal: No evidence of bowel obstruction or perienteric inflammation. The appendix is kimberly l. Mild left colonic diverticulosis. Small stool burden. Adrenals: No abnormality identified in either adrenal gland. Renal: Few small nonobstructive right renal calculi. No concerning parenchymal abnormality in either kidney. No hydronephrosis or ureteral calculi bilaterally. Bladder/Reproductive: Unremarkable appearance of the urinary bladder by CT technique. Mild prostatome flaco. Vascular/Lymphatics: No lymphadenopathy identified by CT size criteria. Abdominal aorta is normal in caliber. Mild calcific atherosclerosis. Musculoskeletal: No concerning osseous lesion identified. Fluid / peritoneum: No significant free fluid. No free intraperitoneal air identified. IMPRESSION No acute abnormality identified in the abdomen or pelvis by CT. Electronically signed by: Madelyn Lundberg MD 09/19/2024 12:38 AM [facility] Due to temporary technical issues with the PACS/[employer] reporting system, reports are being kimberly d by the in-house radiologist without review as a courtesy to ensure prompt reporting the interpreting radiologist is fully responsible for the content of the report. Transcribed Date/Time: 09/19/2024 1:53 AM
[2024-09-19 09:47] VITALS: TEMP 98
[2024-09-19 09:59] VITALS: BP 152/84; O2SAT 96
== END 2024-09-19 02:02 | disposition home or self-care (01) ==
LOC: ER 21:24
DX: R10.11 Right upper quadrant pain (principal); B02.9 Zoster without complications; E11.9 Type 2 diabetes mellitus without complications; I10 Essential (primary) hypertension; Z95.1 Presence of aortocoronary bypass graft
CPT/HCPCS: 96361; 85025; 36415; 84484; 83690; 80053; 83880; 86140; 71260; 74177; 96375; 96374; 99284; Q9967; J7030

== ENCOUNTER 2025-07-22 09:06 | Emergency (ER) | payer OTHER ==
--- NOTE | 2025-07-22 09:45 | EDPHYS ---
Physician Documentation [facility] Name: Ethan Paredes Age: 69 yrs Sex: Male : 1955 Arrival Date: 07/22/2025 Time: 09:06 Bed IW1 Private MD: ED Physician Radha Bond HPI: 07/22 09:41 This 69 yrs old Male presents to ER via Unassigned with complaints of Abdominal Pain, kb Vomiting. 09:41 Pt is a 69 year old male who presents for nausea, vomiting and upper abd pain that kb started this morning. States he has gallstones and feels like this is a gallbladder attack, but the symptoms are improving so he elected not to come to the back for full evaluation. ROS: 09:41 Constitutional: As per HPI kb Exam: 09:41 Constitutional: This is a well developed, well nourished patient who is awake, alert, kb and in no acute distress. Head/Face: Normocephalic, atraumatic. ENT: Moist Mucous membranes Respiratory: Respirations even and unlabored. No increased work of breathing. Talking in full sentences Neuro: Awake and alert, GCS 15, oriented to person, place, time, and situation. MDM: 09:10 Medical Screening Exam initiated kb 09:13 ED course: Pt is currently refusing to be seen. States the pain has improved since kb onset and he has medication at home that he can take. States he wants to wait a few minutes before he decides if he wants to be seen. States he knows it is his gallbladder so he doesn't think he really needs to be here. . 09:42 Differential diagnosis: cholecystitis, Cholelithiasis, gastritis, non-specific abd kb pain, pancreatitis. Data reviewed: vital signs, nurses notes. Test considered but Not performed: Labs: cbc, cmp and lipase considered but pt does not want a workup completed. Ultrasound US abd considered but pt does not want a workup at this time. Historians other than the Patient: Spouse/Significant Other: spouse. ED course: Pt decided to go home. States he has medication to manage him symptoms at home and the pain has improved since onset so he does not think he needs to be seen. . Administered Medications: No medications were administered Disposition Summary: 07/22/25 09:45 Eloped Notes: Disposition: after being seen by provider kb Reason: feeling better kb Condition: Stable kb Signatures: Natali Pepper, EMPLOYEE RELATION MANAGER-C EMPLOYEE RELATION MANAGER-Syedb
== END 2025-07-22 09:45 | disposition left against medical advice (07) ==
LOC: ER 09:06
DX: R11.2 Nausea with vomiting, unspecified (principal); R10.10 Upper abdominal pain, unspecified